=== PATIENT | female | born 1970 | race Caucasian/White ===

== ENCOUNTER 2017-09-15 22:29 | Inpatient (IN) | payer MEDICARE, MEDICAID ==
[~2017-09-15] VITALS: Ht 162.6 cm; Wt 62.1 kg
[2017-09-16 04:20] VITALS: BP 121/66
[2017-09-16] MEDS ORDERED: INFLUENZA VIRUS VACCINE QVS 2017-18 (3YR+)/PF 60 MCG/0.5 ML SYRINGE IM ONE (05:30)
[2017-09-16] MEDS ORDERED: PNEUMOCOCCAL VACCINE POLYVALENT 0.5 ML VIAL [PPSV23] IM ONE (05:30)
[2017-09-16 09:15] VITALS: BP 117/65
[2017-09-16] MEDS ORDERED: CloNIDine HCL 0.1 MG TABLET PO PRN (09:45)
[2017-09-16] MEDS ORDERED: PETROLATUM,WHITE 71 GM JELLY TP PRN (09:45)
[2017-09-16] MEDS ORDERED: MAG HYDROX/AL HYDROX/SIMETH ES 30 ML SUSPENSION UDCUP PO PRN (09:45)
[2017-09-16] MEDS ORDERED: BACITRACIN 28.4 GM OINTMENT TP PRN (09:45)
[2017-09-16] MEDS ORDERED: ACETAMINOPHEN 325 MG TABLET PO PRN (09:45)
[2017-09-16] MEDS ORDERED: BENZOCAINE/MENTHOL LOZENGE MM PRN (09:45)
[2017-09-16] MEDS ORDERED: IBUPROFEN 600 MG TABLET PO PRN (09:45)
[2017-09-16] MEDS ORDERED: LOPERAMIDE HCL 2 MG CAPSULE PO PRN (09:45)
[2017-09-16] MEDS ORDERED: ONDANSETRON HCL 4 MG TABLET PO PRN (09:45)
[2017-09-16] MEDS ORDERED: MAGNESIUM HYDROXIDE SUSPENSION 30 ML UDCUP PO PRN (09:45)
[2017-09-16] MEDS ORDERED: ALBUTEROL SULFATE HFA 90 MCG/PUFF 8 GM INHALER IH PRN (09:45)
[2017-09-16] MEDS: NICOTINE 21 MG/24 HOUR PATCH TD SCH (13:08)
[2017-09-16] MEDS: DOCUSATE SODIUM 100 MG CAPSULE PO SCH (13:08)
[2017-09-16] MEDS: LORazepam 2 MG TABLET PO PRN ×2 (14:04→19:53)
[2017-09-16] MEDS: ZOLPIDEM TARTRATE 10 MG TABLET PO PRN (20:23)
[2017-09-17 07:11] VITALS: BP 101/67
[2017-09-17] MEDS: QUEtiapine FUMARATE 100 MG TABLET PO PRN (07:41)
[2017-09-17] MEDS: LORazepam 2 MG TABLET PO PRN ×2 (07:41→16:45)
[2017-09-17] MEDS: DOCUSATE SODIUM 100 MG CAPSULE PO SCH (08:12)
[2017-09-17] MEDS: NICOTINE 21 MG/24 HOUR PATCH TD SCH (08:12)
[2017-09-17] MEDS: OMEPRAZOLE 20 MG CAPSULE PO SCH (08:13)
[2017-09-17] MEDS: CITALOPRAM HYDROBROMIDE 20 MG TABLET PO SCH (12:32)
[2017-09-17] MEDS ORDERED: DOCUSATE SODIUM 100 MG CAPSULE PO PRN (15:30)
[2017-09-17] MEDS: DIVALPROEX SODIUM 500 MG DR TABLET PO SCH (16:37)
[2017-09-17] MEDS: ZOLPIDEM TARTRATE 10 MG TABLET PO PRN (21:18)
[2017-09-18] MEDS: LORazepam 2 MG TABLET PO PRN ×3 (02:03→16:59)
[2017-09-18 07:08] VITALS: BP 120/85
[2017-09-18] MEDS: NICOTINE 21 MG/24 HOUR PATCH TD SCH (08:00)
[2017-09-18] MEDS: CITALOPRAM HYDROBROMIDE 20 MG TABLET PO SCH (08:00)
[2017-09-18] MEDS: DIVALPROEX SODIUM 500 MG DR TABLET PO SCH ×3 (08:00→16:59)
[2017-09-18] MEDS: OMEPRAZOLE 20 MG CAPSULE PO SCH (08:00)
[2017-09-18 08:05] VITALS: BP 114/73
[2017-09-18 09:00] LABS: BASOPHILS % (AUTO) 0.4 % (0.0-2.0); EOSINOPHILS % (AUTO) 3.1 % (1.0-6.0); HEMATOCRIT 38.7 % (36-46); HEMOGLOBIN 13.3 g/dL (12.0-16.0); LYMPHOCYTES # (AUTO) 2.2 K/uL (1.0-4.8); MEAN CORPUSCULAR HEMOGLOBIN 30.1 pg (26.0-34.0); MEAN CORPUSCULAR HGB CONC 34.4 G/dL (31.0-37.0); MEAN CORPUSCULAR VOLUME 88 fL (80-100); MONOCYTES # (AUTO) 0.4 K/uL (0.1-1.0); MONOCYTES % (AUTO) 5.3 % (2.0-9.0); NEUTROPHILS # (AUTO) 4.6 K/uL (1.8-7.7); NEUTROPHILS % (AUTO) 62.2 % (40.0-70.0); PLATELET COUNT (AUTO) 300 K/uL (150-450); RED BLOOD CELL COUNT(AUTO) 4.42 MIL/uL (4.00-5.20)
[2017-09-18 09:49] LABS: HEMOGLOBIN A1C 5.1 % (4.5-6.2)
[2017-09-18] MEDS: GuaiFENesin/D-METHORPHAN [SUGAR-FREE] 200-20MG/10 ML SYRUP UDCUP PO PRN (09:54)
[2017-09-18] MEDS: QUEtiapine FUMARATE 100 MG TABLET PO PRN (10:52)
[2017-09-18 12:11] LABS: ALBUMIN 3.7 g/dL (3.4-5.0); BILIRUBIN,TOTAL 0.3 mg/dL (0.1-1.0); CALCIUM, TOTAL 8.6 mg/dL (8.8-10.5); CHOL/HDL RATIO 3.4 (3.9-5.7); CREATININE 1.04 mg/dL (0.60-1.30); FREE T4 (FREE THYROXINE) 0.33 ng/dL (0.76-1.46); THYROID STIMULATING HORMONE 107.01 uIU/mL (0.36-3.74); TOTAL PROTEIN, SERUM 7.7 g/dL (6.4-8.2)
[2017-09-18] MEDS: ZOLPIDEM TARTRATE 10 MG TABLET PO PRN (23:32)
[2017-09-19] MEDS: LORazepam 2 MG TABLET PO PRN ×3 (05:49→22:44)
[2017-09-19 06:59] VITALS: BP 118/74
[2017-09-19] MEDS: OMEPRAZOLE 20 MG CAPSULE PO SCH (08:53)
[2017-09-19] MEDS: NICOTINE 21 MG/24 HOUR PATCH TD SCH (08:53)
[2017-09-19] MEDS: DIVALPROEX SODIUM 500 MG DR TABLET PO SCH (08:53)
[2017-09-19] MEDS: CHOLECALCIFEROL (VIT D3) 1,000 UNITS TABLET PO SCH (08:53)
[2017-09-19] MEDS: CITALOPRAM HYDROBROMIDE 20 MG TABLET PO SCH (08:53)
[2017-09-19] MEDS: OMEGA-3/DHA/EPA/FISH OIL 1,000 MG CAPSULE PO SCH (08:53)
[2017-09-19] MEDS ORDERED: OMEGA-3/DHA/EPA/FISH OIL 1,000 MG CAPSULE PO SCH (09:00)
[2017-09-19] MEDS ORDERED: CHOLECALCIFEROL (VIT D3) 1,000 UNITS TABLET PO SCH (09:00)
[2017-09-19 09:27] LABS: ANION GAP 11 mmol/L (8-16); CALCIUM, TOTAL 8.8 mg/dL (8.8-10.5); CARBON DIOXIDE 23 mmol/L (22-29); CHLORIDE 105 mmol/L (98-107); CREATININE 0.98 mg/dL (0.60-1.30); GLOMERULAR FILTR. RATE CALC > 60 mL/min (>60); GLUCOSE,RANDOM 125 mg/dL (70-110); POTASSIUM 3.8 mmol/L (3.5-5.1); SODIUM SERUM 139 mmol/L (136-145); THYROID STIMULATING HORMONE 95.82 uIU/mL (0.36-3.74); UREA NITROGEN, BLOOD 23 mg/dL (7-18)
[2017-09-19] MEDS: LEVOTHYROXINE SODIUM 100 MCG TABLET PO SCH (10:28)
[2017-09-19] MEDS: QUEtiapine FUMARATE 100 MG TABLET PO PRN ×2 (10:47→20:04)
[2017-09-19 16:42] VITALS: BP 118/73
[2017-09-19] MEDS: LITHIUM CARBONATE 300 MG CAPSULE PO SCH (20:04)
[2017-09-19] MEDS: ZOLPIDEM TARTRATE 10 MG TABLET PO PRN (20:05)
[2017-09-20] MEDS: LORazepam 2 MG TABLET PO PRN ×3 (04:03→17:20)
[2017-09-20] MEDS: LEVOTHYROXINE SODIUM 100 MCG TABLET PO SCH (06:34)
[2017-09-20] MEDS: CHOLECALCIFEROL (VIT D3) 1,000 UNITS TABLET PO SCH (08:46)
[2017-09-20] MEDS: NICOTINE 21 MG/24 HOUR PATCH TD SCH (08:46)
[2017-09-20] MEDS: OMEGA-3/DHA/EPA/FISH OIL 1,000 MG CAPSULE PO SCH (08:47)
[2017-09-20] MEDS: CITALOPRAM HYDROBROMIDE 20 MG TABLET PO SCH (08:47)
[2017-09-20] MEDS: OMEPRAZOLE 20 MG CAPSULE PO SCH (08:47)
[2017-09-20] MEDS: QUEtiapine FUMARATE 100 MG TABLET PO PRN (12:03)
[2017-09-20] MEDS: LITHIUM CARBONATE 300 MG CAPSULE PO SCH (20:15)
[2017-09-20] MEDS: ZOLPIDEM TARTRATE 10 MG TABLET PO PRN (23:22)
[2017-09-21] MEDS: LORazepam 2 MG TABLET PO PRN ×4 (04:11→20:03)
[2017-09-21] MEDS: QUEtiapine FUMARATE 100 MG TABLET PO PRN ×4 (04:11→20:03)
[2017-09-21] MEDS: LEVOTHYROXINE SODIUM 100 MCG TABLET PO SCH (06:29)
[2017-09-21] MEDS: CHOLECALCIFEROL (VIT D3) 1,000 UNITS TABLET PO SCH (08:00)
[2017-09-21] MEDS: NICOTINE 21 MG/24 HOUR PATCH TD SCH (08:00)
[2017-09-21] MEDS: OMEPRAZOLE 20 MG CAPSULE PO SCH (08:00)
[2017-09-21] MEDS: CITALOPRAM HYDROBROMIDE 20 MG TABLET PO SCH (08:00)
[2017-09-21] MEDS: OMEGA-3/DHA/EPA/FISH OIL 1,000 MG CAPSULE PO SCH (08:01)
[2017-09-21 08:11] VITALS: BP 99/58
[2017-09-21] MEDS: LITHIUM CARBONATE 300 MG CAPSULE PO SCH (20:03)
[2017-09-21] MEDS: ZOLPIDEM TARTRATE 10 MG TABLET PO PRN (21:30)
[2017-09-22 04:27] VITALS: BP 107/60
[2017-09-22] MEDS: LEVOTHYROXINE SODIUM 100 MCG TABLET PO SCH (06:27)
[2017-09-22] MEDS: LORazepam 2 MG TABLET PO PRN ×4 (06:31→17:45)
[2017-09-22] MEDS: QUEtiapine FUMARATE 100 MG TABLET PO PRN ×4 (06:32→21:22)
[2017-09-22] MEDS: DENTURE ADHESIVE 68 GM CREAM DT PRN (07:09)
[2017-09-22] MEDS: CITALOPRAM HYDROBROMIDE 20 MG TABLET PO SCH (08:02)
[2017-09-22] MEDS: NICOTINE 21 MG/24 HOUR PATCH TD SCH (08:02)
[2017-09-22] MEDS: CHOLECALCIFEROL (VIT D3) 1,000 UNITS TABLET PO SCH (08:02)
[2017-09-22] MEDS: OMEPRAZOLE 20 MG CAPSULE PO SCH (08:02)
[2017-09-22] MEDS: OMEGA-3/DHA/EPA/FISH OIL 1,000 MG CAPSULE PO SCH (08:05)
[2017-09-22] MEDS: GuaiFENesin/D-METHORPHAN [SUGAR-FREE] 200-20MG/10 ML SYRUP UDCUP PO PRN (14:46)
[2017-09-22 16:18] VITALS: BP 105/69
[2017-09-22] MEDS: LITHIUM CARBONATE 300 MG CAPSULE PO SCH (20:01)
[2017-09-22] MEDS: ZOLPIDEM TARTRATE 10 MG TABLET PO PRN (20:01)
[2017-09-23 01:02] VITALS: BP 112/67
[2017-09-23 06:17] LABS: GLUCOMETER DEV NAME(LOC) BV3S 2; GLUCOSE,POINT OF CARE 115 MG/DL (70-110)
[2017-09-23] MEDS: LEVOTHYROXINE SODIUM 100 MCG TABLET PO SCH (06:32)
[2017-09-23] MEDS: LORazepam 2 MG TABLET PO PRN ×3 (06:40→18:00)
[2017-09-23 07:54] LABS: LITHIUM 1.11 mmol/L (0.60-1.20)
[2017-09-23] MEDS: NICOTINE 21 MG/24 HOUR PATCH TD SCH (08:20)
[2017-09-23] MEDS: CITALOPRAM HYDROBROMIDE 20 MG TABLET PO SCH (08:20)
[2017-09-23] MEDS: OMEPRAZOLE 20 MG CAPSULE PO SCH (08:21)
[2017-09-23] MEDS: QUEtiapine FUMARATE 100 MG TABLET PO PRN ×2 (08:21→13:57)
[2017-09-23] MEDS: CHOLECALCIFEROL (VIT D3) 1,000 UNITS TABLET PO SCH (08:21)
[2017-09-23] MEDS: OMEGA-3/DHA/EPA/FISH OIL 1,000 MG CAPSULE PO SCH (08:21)
[2017-09-23 08:27] VITALS: BP 119/73
[2017-09-23 09:25] LABS: THYROID STIMULATING HORMONE 91.11 uIU/mL (0.36-3.74)
[2017-09-23] MEDS: LITHIUM CARBONATE 300 MG CAPSULE PO SCH (20:23)
[2017-09-23] MEDS: ZOLPIDEM TARTRATE 10 MG TABLET PO PRN (21:04)
[2017-09-24] MEDS: LORazepam 2 MG TABLET PO PRN ×3 (05:29→16:10)
[2017-09-24] MEDS: LEVOTHYROXINE SODIUM 125 MCG TABLET PO SCH (06:00)
[2017-09-24] MEDS: QUEtiapine FUMARATE 100 MG TABLET PO PRN ×3 (06:00→16:10)
[2017-09-24 06:45] VITALS: BP 115/74
[2017-09-24] MEDS: OMEPRAZOLE 20 MG CAPSULE PO SCH (07:52)
[2017-09-24] MEDS: CHOLECALCIFEROL (VIT D3) 1,000 UNITS TABLET PO SCH (07:52)
[2017-09-24] MEDS: NICOTINE 21 MG/24 HOUR PATCH TD SCH (07:52)
[2017-09-24] MEDS: OMEGA-3/DHA/EPA/FISH OIL 1,000 MG CAPSULE PO SCH (07:53)
[2017-09-24] MEDS: CITALOPRAM HYDROBROMIDE 20 MG TABLET PO SCH (07:53)
[2017-09-24 16:00] VITALS: BP 121/55
[2017-09-24] MEDS: ZOLPIDEM TARTRATE 10 MG TABLET PO PRN (20:05)
[2017-09-24] MEDS: LITHIUM CARBONATE 300 MG CAPSULE PO SCH (20:05)
[2017-09-25] MEDS: LORazepam 2 MG TABLET PO PRN ×4 (00:40→17:43)
[2017-09-25 02:17] VITALS: BP 121/62
[2017-09-25] MEDS: LEVOTHYROXINE SODIUM 125 MCG TABLET PO SCH (06:10)
[2017-09-25] MEDS: CHOLECALCIFEROL (VIT D3) 1,000 UNITS TABLET PO SCH (08:03)
[2017-09-25] MEDS: OMEPRAZOLE 20 MG CAPSULE PO SCH (08:03)
[2017-09-25] MEDS: NICOTINE 21 MG/24 HOUR PATCH TD SCH (08:03)
[2017-09-25] MEDS: CITALOPRAM HYDROBROMIDE 20 MG TABLET PO SCH (08:03)
[2017-09-25] MEDS: QUEtiapine FUMARATE 100 MG TABLET PO PRN ×2 (08:03→12:29)
[2017-09-25] MEDS: OMEGA-3/DHA/EPA/FISH OIL 1,000 MG CAPSULE PO SCH (08:05)
[2017-09-25] MEDS: GuaiFENesin/D-METHORPHAN [SUGAR-FREE] 200-20MG/10 ML SYRUP UDCUP PO PRN (12:29)
[2017-09-25] MEDS: LITHIUM CARBONATE 300 MG CAPSULE PO SCH ×2 (14:33→20:01)
[2017-09-25 16:16] VITALS: BP 117/70
[2017-09-25] MEDS: ZOLPIDEM TARTRATE 10 MG TABLET PO PRN (20:25)
[2017-09-26] MEDS: LEVOTHYROXINE SODIUM 125 MCG TABLET PO SCH (06:12)
[2017-09-26 06:29] VITALS: BP 100/60
[2017-09-26] MEDS: QUEtiapine FUMARATE 100 MG TABLET PO PRN (08:53)
[2017-09-26] MEDS: NICOTINE 21 MG/24 HOUR PATCH TD SCH (08:53)
[2017-09-26] MEDS: LITHIUM CARBONATE 300 MG CAPSULE PO SCH ×2 (08:54→20:02)
[2017-09-26] MEDS: CITALOPRAM HYDROBROMIDE 20 MG TABLET PO SCH (08:54)
[2017-09-26] MEDS: OMEPRAZOLE 20 MG CAPSULE PO SCH (08:54)
[2017-09-26] MEDS: OMEGA-3/DHA/EPA/FISH OIL 1,000 MG CAPSULE PO SCH (08:54)
[2017-09-26] MEDS: LORazepam 2 MG TABLET PO PRN ×2 (08:54→16:08)
[2017-09-26] MEDS: CHOLECALCIFEROL (VIT D3) 1,000 UNITS TABLET PO SCH (08:54)
[2017-09-26] MEDS: ZOLPIDEM TARTRATE 10 MG TABLET PO PRN (20:03)
[2017-09-27] MEDS: LORazepam 2 MG TABLET PO PRN ×3 (06:06→16:21)
[2017-09-27] MEDS: LEVOTHYROXINE SODIUM 125 MCG TABLET PO SCH (06:06)
[2017-09-27] MEDS: OMEGA-3/DHA/EPA/FISH OIL 1,000 MG CAPSULE PO SCH (08:31)
[2017-09-27] MEDS: OMEPRAZOLE 20 MG CAPSULE PO SCH (08:31)
[2017-09-27] MEDS: NICOTINE 21 MG/24 HOUR PATCH TD SCH (08:32)
[2017-09-27] MEDS: CITALOPRAM HYDROBROMIDE 20 MG TABLET PO SCH (08:32)
[2017-09-27] MEDS: LITHIUM CARBONATE 300 MG CAPSULE PO SCH ×2 (08:32→20:11)
[2017-09-27] MEDS: CHOLECALCIFEROL (VIT D3) 1,000 UNITS TABLET PO SCH (08:32)
[2017-09-27] MEDS: QUEtiapine FUMARATE 100 MG TABLET PO PRN ×2 (09:12→14:18)
[2017-09-27] MEDS: GuaiFENesin/D-METHORPHAN [SUGAR-FREE] 200-20MG/10 ML SYRUP UDCUP PO PRN (11:08)
[2017-09-27 16:33] VITALS: BP 105/65
[2017-09-27] MEDS ORDERED: DiphenhydrAMINE HCL 25 MG CAPSULE PO ONE (17:30)
[2017-09-27] MEDS: ZOLPIDEM TARTRATE 10 MG TABLET PO PRN (20:11)
[2017-09-28 01:06] VITALS: BP 124/74
[2017-09-28] MEDS: LORazepam 2 MG TABLET PO PRN ×3 (01:07→13:34)
[2017-09-28] MEDS: QUEtiapine FUMARATE 100 MG TABLET PO PRN ×3 (04:46→13:34)
[2017-09-28] MEDS: LEVOTHYROXINE SODIUM 125 MCG TABLET PO SCH (06:16)
[2017-09-28] MEDS: NICOTINE 21 MG/24 HOUR PATCH TD SCH (08:49)
[2017-09-28] MEDS: CITALOPRAM HYDROBROMIDE 20 MG TABLET PO SCH (08:49)
[2017-09-28] MEDS: LITHIUM CARBONATE 300 MG CAPSULE PO SCH ×2 (08:49→20:30)
[2017-09-28] MEDS: CHOLECALCIFEROL (VIT D3) 1,000 UNITS TABLET PO SCH (08:49)
[2017-09-28] MEDS: OMEGA-3/DHA/EPA/FISH OIL 1,000 MG CAPSULE PO SCH (08:49)
[2017-09-28] MEDS: OMEPRAZOLE 20 MG CAPSULE PO SCH (08:49)
[2017-09-28 16:00] VITALS: BP 98/71
[2017-09-28] MEDS: ZOLPIDEM TARTRATE 10 MG TABLET PO PRN (21:15)
[2017-09-29 03:27] VITALS: BP 111/62
[2017-09-29] MEDS: LORazepam 2 MG TABLET PO PRN ×2 (03:30→08:43)
[2017-09-29] MEDS: QUEtiapine FUMARATE 100 MG TABLET PO PRN ×2 (04:21→09:38)
[2017-09-29] MEDS: DENTURE ADHESIVE 68 GM CREAM DT PRN (05:51)
[2017-09-29] MEDS: LEVOTHYROXINE SODIUM 125 MCG TABLET PO SCH (05:51)
[2017-09-29] MEDS: LITHIUM CARBONATE 300 MG CAPSULE PO SCH (08:39)
[2017-09-29] MEDS: CHOLECALCIFEROL (VIT D3) 1,000 UNITS TABLET PO SCH (08:39)
[2017-09-29] MEDS: CITALOPRAM HYDROBROMIDE 20 MG TABLET PO SCH (08:40)
[2017-09-29] MEDS: OMEPRAZOLE 20 MG CAPSULE PO SCH (08:40)
[2017-09-29] MEDS: OMEGA-3/DHA/EPA/FISH OIL 1,000 MG CAPSULE PO SCH (08:40)
[2017-09-29] MEDS: NICOTINE 21 MG/24 HOUR PATCH TD SCH (08:42)
[2017-09-29] MEDS ORDERED: LITH300C3 PO ×2 (12:29)
[2017-09-29] MEDS ORDERED: CITA20TA9 PO (12:30)
[2017-09-29] MEDS ORDERED: LEVO125T95 PO (12:30)
[2017-09-29] MEDS ORDERED: VITAD1000 PO (12:31)
[2017-09-29] MEDS ORDERED: OMEG-135 PO (12:31)
[2017-09-29] MEDS ORDERED: OMEP20 PO (12:31)
== END 2017-09-29 12:55 | disposition home or self-care (01) | DRG 885 ==
LOC: EDSTATUS 22:32 → B3A 09-16 03:30
PROVIDERS: ADMIT Psychiatry & Neurology Psychiatry; ATTEND Psychiatry & Neurology Psychiatry
PROC: 3E0234Z Introduction of Serum, Toxoid and Vaccine into Muscle, Percutaneous Approach (ICD-10-PCS; principal; 2017-09-16)
DX: F31.9 Bipolar disorder, unspecified (principal); R45.851 Suicidal ideations; E83.51 Hypocalcemia; Z91.19 Patient's noncompliance with other medical treatment and regimen; Z23 Encounter for immunization; E03.9 Hypothyroidism, unspecified; E78.1 Pure hyperglyceridemia; F17.200 Nicotine dependence, unspecified, uncomplicated; Z71.6 Tobacco abuse counseling; R05 Cough
CPT/HCPCS: 82306; 82962; 83036; 84439; 84443; 87081; 90471; J3535

== ENCOUNTER 2017-10-19 12:48 | Inpatient (IN) | payer MEDICARE, MEDICAID ==
[~2017-10-19] VITALS: Ht 157.5 cm; Wt 60.3 kg
[~2017-10-19 12:48] MED LIST: CITA20TA9 PO; LEVO125T95 PO; LITH300C3 PO; OMEG-135 PO; OMEP20 PO; VITAD1000 PO
[2017-10-19] MEDS ORDERED: HALO100A IM (13:14)
[2017-10-19] MEDS ORDERED: LEVO100 PO (13:14)
[2017-10-19] MEDS ORDERED: TRAZ-144 PO (13:14)
[2017-10-19] MEDS ORDERED: QUET25TA PO (13:14)
[2017-10-19] MEDS ORDERED: HALOPERIDOL 5 MG TABLET PO PRN (13:15)
[2017-10-19] MEDS ORDERED: HALOPERIDOL 5 MG TABLET PO ONE (13:15)
[2017-10-19] MEDS ORDERED: LORazepam 2 MG TABLET PO PRN (13:15)
[2017-10-19] MEDS ORDERED: ZOLPIDEM TARTRATE 10 MG TABLET PO PRN (13:15)
[2017-10-19] MEDS ORDERED: LORazepam 2 MG TABLET PO ONE (13:15)
[2017-10-19 13:22] LABS: AMPHET/METH SCREEN,URINE NEGATIVE (NEGATIVE); BARBITURATE SCREEN, URINE NEGATIVE (NEGATIVE); BENZODIAZEPINES SCREEN,URINE NEGATIVE (NEGATIVE); CANNABINOID SCREEN,URINE NEGATIVE (NEGATIVE); COCAINE SCREEN,URINE NEGATIVE (NEGATIVE); METHADONE SCREEN, URINE NEGATIVE (NEGATIVE); OPIATE SCREEN,URINE NEGATIVE (NEGATIVE); PHENCYCLIDINE SCREEN,URINE NEGATIVE (NEGATIVE)
[2017-10-19 13:27] LABS: BASOPHILS # (AUTO) 0.02 K/uL (0.00-0.20); BASOPHILS % (AUTO) 0.2 % (0.0-2.0); EOSINOPHILS # (AUTO) 0.03 K/uL (0.00-0.70); EOSINOPHILS % (AUTO) 0.32 % (1.0-6.0); HEMATOCRIT 36.1 % (36-46); HEMOGLOBIN 12.2 g/dL (12.0-16.0); LYMPHOCYTES # (AUTO) 2.6 K/uL (1.0-4.8); LYMPHOCYTES % (AUTO) 24.8 % (22.0-44.0); MEAN CORPUSCULAR HEMOGLOBIN 29.9 pg (26.0-34.0); MEAN CORPUSCULAR HGB CONC 33.7 G/dL (31.0-37.0); MEAN CORPUSCULAR VOLUME 89 fL (80-100); MONOCYTES # (AUTO) 0.5 K/uL (0.1-1.0); MONOCYTES % (AUTO) 4.9 % (2.0-9.0); NEUTROPHILS # (AUTO) 7.3 K/uL (1.8-7.7); NEUTROPHILS % (AUTO) 69.8 % (40.0-70.0); PLATELET COUNT (AUTO) 291 K/uL (150-450); RED BLOOD CELL COUNT(AUTO) 4.07 MIL/uL (4.00-5.20); RED CELL DISTRIBUTION WIDTH 15.5 % (11.5-14.5)
[2017-10-19 13:33] LABS: ANION GAP 9 mmol/L (8-16); CARBON DIOXIDE 28 mmol/L (22-29); CHLORIDE 103 mmol/L (98-107); GLUCOSE,RANDOM 108 mg/dL (70-110); SODIUM SERUM 140 mmol/L (136-145); UREA NITROGEN, BLOOD 20 mg/dL (7-18)
[2017-10-19 13:34] LABS: CALCIUM, TOTAL 9.3 mg/dL (8.8-10.5); GLOMERULAR FILTR. RATE CALC > 60 mL/min (>60)
[2017-10-19 13:39] LABS: ALANINE AMINOTRANSFERASE 25 U/L (12-78); ALKALINE PHOSPHATASE 63 U/L (46-116); ASPARTATE AMINOTRANSFERASE 19 U/L (15-37); BILIRUBIN,TOTAL 0.3 mg/dL (0.1-1.0); TOTAL PROTEIN, SERUM 7.6 g/dL (6.4-8.2)
[2017-10-19 13:42] LABS: LITHIUM < 0.20 mmol/L (0.60-1.20)
[2017-10-19 18:11] VITALS: BP 116/75
[2017-10-19] MEDS ORDERED: -PHARMACY VACCINE NOTE- MISC ONE (18:30)
[2017-10-20 01:18] VITALS: BP 101/61
[2017-10-20] MEDS: NICOTINE 21 MG/24 HOUR PATCH TD SCH (08:31)
[2017-10-20 08:44] VITALS: BP 100/53
[2017-10-20] MEDS: LORazepam 2 MG TABLET PO PRN (10:03)
[2017-10-20] MEDS: OMEPRAZOLE 20 MG CAPSULE PO SCH ×2 (10:03→16:40)
[2017-10-20] MEDS: HALOPERIDOL 5 MG TABLET PO PRN (10:03)
[2017-10-20] MEDS: LEVOTHYROXINE SODIUM 100 MCG TABLET PO SCH (10:09)
[2017-10-20 16:15] VITALS: BP 111/64
[2017-10-20] MEDS: DIVALPROEX SODIUM 500 MG DR TABLET PO SCH (19:09)
[2017-10-20] MEDS: RisperiDONE 1 MG TABLET PO SCH (19:09)
[2017-10-20] MEDS: LITHIUM CARBONATE 300 MG CAPSULE PO SCH (20:36)
[2017-10-21] MEDS: ZOLPIDEM TARTRATE 10 MG TABLET PO PRN ×2 (00:10→01:13)
[2017-10-21] MEDS: LORazepam 2 MG TABLET PO PRN ×3 (00:10→14:16)
[2017-10-21 00:24] VITALS: BP 113/65
[2017-10-21] MEDS: HALOPERIDOL 5 MG TABLET PO PRN ×2 (01:20→11:54)
[2017-10-21] MEDS: LEVOTHYROXINE SODIUM 100 MCG TABLET PO SCH (07:04)
[2017-10-21 08:20] LABS: LITHIUM 0.59 mmol/L (0.60-1.20)
[2017-10-21 08:25] LABS: CHOL/HDL RATIO 3.8 (3.9-5.7); FREE T4 (FREE THYROXINE) 0.39 ng/dL (0.76-1.46)
[2017-10-21] MEDS: DIVALPROEX SODIUM 500 MG DR TABLET PO SCH ×2 (08:51→16:38)
[2017-10-21] MEDS: OMEPRAZOLE 20 MG CAPSULE PO SCH ×2 (08:51→16:38)
[2017-10-21] MEDS: RisperiDONE 1 MG TABLET PO SCH ×2 (08:51→16:38)
[2017-10-21] MEDS: NICOTINE 21 MG/24 HOUR PATCH TD SCH (08:51)
[2017-10-21 09:11] VITALS: BP 104/62
[2017-10-21 09:44] LABS: THYROID STIMULATING HORMONE 145.48 uIU/mL (0.36-3.74)
[2017-10-21 14:15] VITALS: BP 125/67
[2017-10-21 16:23] VITALS: BP 105/62
[2017-10-21] MEDS: TraZODone HCL 50 MG TABLET PO SCH (20:39)
[2017-10-21] MEDS: LITHIUM CARBONATE 300 MG CAPSULE PO SCH (20:39)
[2017-10-22 02:25] VITALS: BP 112/68
[2017-10-22] MEDS: ZOLPIDEM TARTRATE 10 MG TABLET PO PRN ×2 (02:30→22:12)
[2017-10-22 03:50] VITALS: BP 110/67
[2017-10-22] MEDS: HALOPERIDOL 5 MG TABLET PO PRN (03:54)
[2017-10-22] MEDS: LEVOTHYROXINE SODIUM 100 MCG TABLET PO SCH (06:40)
[2017-10-22 08:18] VITALS: BP 102/69
[2017-10-22] MEDS: OMEPRAZOLE 20 MG CAPSULE PO SCH ×2 (08:43→16:34)
[2017-10-22] MEDS: NICOTINE 21 MG/24 HOUR PATCH TD SCH (08:43)
[2017-10-22] MEDS: RisperiDONE 1 MG TABLET PO SCH ×2 (08:43→16:34)
[2017-10-22] MEDS: DIVALPROEX SODIUM 500 MG DR TABLET PO SCH ×2 (08:43→16:34)
[2017-10-22 16:00] VITALS: BP 113/65
[2017-10-22] MEDS: ACETAMINOPHEN 325 MG TABLET PO PRN (16:00)
[2017-10-22] MEDS: LITHIUM CARBONATE 300 MG CAPSULE PO SCH (20:33)
[2017-10-22] MEDS: TraZODone HCL 50 MG TABLET PO SCH (20:33)
[2017-10-23 01:00] VITALS: BP 110/71
[2017-10-23] MEDS: LORazepam 2 MG TABLET PO PRN (01:02)
[2017-10-23] MEDS: LEVOTHYROXINE SODIUM 100 MCG TABLET PO SCH (07:04)
[2017-10-23 08:12] VITALS: BP 112/70
[2017-10-23] MEDS: RisperiDONE 1 MG TABLET PO SCH ×2 (08:37→17:06)
[2017-10-23] MEDS: OMEPRAZOLE 20 MG CAPSULE PO SCH ×2 (08:37→17:06)
[2017-10-23] MEDS: DIVALPROEX SODIUM 500 MG DR TABLET PO SCH ×2 (08:37→17:06)
[2017-10-23] MEDS: NICOTINE 21 MG/24 HOUR PATCH TD SCH (08:38)
[2017-10-23] MEDS: HALOPERIDOL 5 MG TABLET PO PRN (13:46)
[2017-10-23 16:25] VITALS: BP 105/60
[2017-10-23] MEDS: ALBUTEROL SULFATE HFA 90 MCG/PUFF 8 GM INHALER IH PRN (18:29)
[2017-10-23] MEDS: LITHIUM CARBONATE 300 MG CAPSULE PO SCH (20:34)
[2017-10-23] MEDS: TraZODone HCL 50 MG TABLET PO SCH (20:34)
[2017-10-23] MEDS: ZOLPIDEM TARTRATE 10 MG TABLET PO PRN (21:27)
[2017-10-24 00:57] VITALS: BP 120/79
[2017-10-24] MEDS: LORazepam 2 MG TABLET PO PRN ×2 (02:38→08:49)
[2017-10-24] MEDS: LEVOTHYROXINE SODIUM 100 MCG TABLET PO SCH (07:02)
[2017-10-24 08:23] VITALS: BP 103/58
[2017-10-24] MEDS: RisperiDONE 1 MG TABLET PO SCH ×2 (08:25→16:17)
[2017-10-24] MEDS: OMEPRAZOLE 20 MG CAPSULE PO SCH ×2 (08:25→16:17)
[2017-10-24] MEDS: DIVALPROEX SODIUM 500 MG DR TABLET PO SCH ×2 (08:25→16:17)
[2017-10-24] MEDS: NICOTINE 21 MG/24 HOUR PATCH TD SCH (08:27)
[2017-10-24 08:45] VITALS: BP 112/68
[2017-10-24] MEDS: HALOPERIDOL 5 MG TABLET PO PRN (12:04)
[2017-10-24 16:11] VITALS: BP 102/60
[2017-10-24 17:32] VITALS: BP 110/68
[2017-10-24] MEDS: ACETAMINOPHEN 325 MG TABLET PO PRN (17:33)
[2017-10-24] MEDS: TraZODone HCL 50 MG TABLET PO SCH (20:21)
[2017-10-24] MEDS: LITHIUM CARBONATE 300 MG CAPSULE PO SCH (20:21)
[2017-10-25] MEDS: LEVOTHYROXINE SODIUM 100 MCG TABLET PO SCH (06:40)
[2017-10-25 08:21] VITALS: BP 102/68
[2017-10-25] MEDS ORDERED: RISP1TAB89 PO (08:27)
[2017-10-25] MEDS ORDERED: DIVA250T4 PO (08:27)
[2017-10-25] MEDS: DIVALPROEX SODIUM 500 MG DR TABLET PO SCH ×2 (08:40→16:42)
[2017-10-25] MEDS: OMEPRAZOLE 20 MG CAPSULE PO SCH ×2 (08:40→16:42)
[2017-10-25] MEDS: RisperiDONE 1 MG TABLET PO SCH ×2 (08:40→16:42)
[2017-10-25] MEDS: NICOTINE 21 MG/24 HOUR PATCH TD SCH ×2 (08:42→10:05)
[2017-10-25] MEDS: ALBUTEROL SULFATE HFA 90 MCG/PUFF 8 GM INHALER IH PRN (10:14)
[2017-10-25] MEDS: LORazepam 2 MG TABLET PO PRN (15:46)
[2017-10-25 16:46] VITALS: BP 108/65
[2017-10-25] MEDS: ACETAMINOPHEN 325 MG TABLET PO PRN (16:47)
[2017-10-25] MEDS: LITHIUM CARBONATE 300 MG CAPSULE PO SCH (20:35)
[2017-10-25] MEDS: TraZODone HCL 50 MG TABLET PO SCH (20:35)
[2017-10-26] MEDS: LEVOTHYROXINE SODIUM 100 MCG TABLET PO SCH (06:26)
[2017-10-26 07:17] VITALS: BP 102/68
[2017-10-26 07:59] VITALS: BP 102/57
[2017-10-26] MEDS: OMEPRAZOLE 20 MG CAPSULE PO SCH ×2 (08:26→17:03)
[2017-10-26] MEDS: RisperiDONE 1 MG TABLET PO SCH ×2 (08:26→17:03)
[2017-10-26] MEDS: NICOTINE 21 MG/24 HOUR PATCH TD SCH (08:26)
[2017-10-26] MEDS: DIVALPROEX SODIUM 500 MG DR TABLET PO SCH ×2 (08:26→17:03)
[2017-10-26] MEDS: ACETAMINOPHEN 325 MG TABLET PO PRN (08:29)
[2017-10-26 09:02] VITALS: BP 102/57
[2017-10-26] MEDS ORDERED: DENTURE ADHESIVE 68 GM CREAM DT PRN (09:45)
[2017-10-26 12:01] VITALS: BP 112/68
[2017-10-26] MEDS: LORazepam 2 MG TABLET PO PRN ×2 (12:01→22:35)
[2017-10-26] MEDS: HALOPERIDOL 5 MG TABLET PO PRN (14:13)
[2017-10-26 16:12] VITALS: BP 101/67
[2017-10-26] MEDS: TraZODone HCL 50 MG TABLET PO SCH (20:33)
[2017-10-26] MEDS: LITHIUM CARBONATE 300 MG CAPSULE PO SCH (20:34)
[2017-10-27 04:33] VITALS: BP 104/62
[2017-10-27] MEDS ORDERED: LEVOTHYROXINE SODIUM 125 MCG TABLET PO SCH (06:30)
[2017-10-27] MEDS: OMEPRAZOLE 20 MG CAPSULE PO SCH (09:11)
[2017-10-27] MEDS: RisperiDONE 1 MG TABLET PO SCH (09:11)
[2017-10-27] MEDS: DIVALPROEX SODIUM 500 MG DR TABLET PO SCH (09:11)
[2017-10-27] MEDS: NICOTINE 21 MG/24 HOUR PATCH TD SCH (09:12)
[2017-10-27 09:22] LABS: FREE T4 (FREE THYROXINE) 0.64 ng/dL (0.76-1.46); THYROID STIMULATING HORMONE 96.33 uIU/mL (0.36-3.74)
== END 2017-10-27 11:25 | disposition home or self-care (01) | DRG 885 ==
LOC: EMS 12:49 → B2X 16:12
PROVIDERS: ADMIT Psychiatry & Neurology Psychiatry; ATTEND Psychiatry & Neurology Psychiatry
DX: F25.9 Schizoaffective disorder, unspecified (principal); R45.851 Suicidal ideations; E03.9 Hypothyroidism, unspecified; F31.9 Bipolar disorder, unspecified; F41.9 Anxiety disorder, unspecified; G89.29 Other chronic pain; M54.5 Low back pain; J44.9 Chronic obstructive pulmonary disease, unspecified; K21.9 Gastro-esophageal reflux disease without esophagitis; F15.90 Other stimulant use, unspecified, uncomplicated; J45.909 Unspecified asthma, uncomplicated; F17.210 Nicotine dependence, cigarettes, uncomplicated; Z79.899 Other long term (current) drug therapy
CPT/HCPCS: 84439; 84443; 87081; 99285; G0480; J3535

== ENCOUNTER 2018-12-01 08:23 | Emergency (ER) | payer MEDICARE, OTHER ==
[~2018-12-01] VITALS: Ht 152.4 cm; Wt 66.4 kg
[~2018-12-01 08:23] MED LIST changes: -CITA20TA9 PO; +DIVA250T4 PO; +LEVO100 PO; -LEVO125T95 PO; -OMEG-135 PO; +RISP1TAB89 PO; +TRAZ-219 PO; -VITAD1000 PO
[2018-12-01] MEDS ORDERED: BUSP15 PO (08:35)
[2018-12-01] MEDS ORDERED: QUET200T PO (08:35)
[2018-12-01 09:28] VITALS: BP 108/90
== END 2018-12-01 09:30 | disposition home or self-care (01) ==
LOC: EMS 08:24
DX: T65.891A Toxic effect of other specified substances, accidental (unintentional), initial encounter (principal); F41.9 Anxiety disorder, unspecified; F31.9 Bipolar disorder, unspecified; F20.9 Schizophrenia, unspecified; E03.9 Hypothyroidism, unspecified; F17.210 Nicotine dependence, cigarettes, uncomplicated; F15.90 Other stimulant use, unspecified, uncomplicated; Z79.899 Other long term (current) drug therapy; Y93.89 Activity, other specified; Y92.89 Other specified places as the place of occurrence of the external cause; Y99.8 Other external cause status

== ENCOUNTER 2019-02-08 07:43 | Emergency (ER) | payer MEDICARE, OTHER ==
[~2019-02-08] VITALS: Ht 160 cm; Wt 72.7 kg
[~2019-02-08 07:43] MED LIST changes: +BUSP15 PO; -DIVA250T4 PO; -LITH300C3 PO; -OMEP20 PO; +QUET200T PO; -TRAZ-219 PO; +TRAZ-252 PO
[2019-02-08] MEDS ORDERED: ACETAMINOPHEN 500 MG TABLET PO ONE (09:30)
[2019-02-08 09:52] LABS: BASOPHILS % (AUTO) 0.9 % (0.0-2.0); EOSINOPHILS % (AUTO) 0.4 % (1.0-6.0); HEMATOCRIT 40.3 % (36-46); HEMOGLOBIN 13.4 g/dL (12.0-16.0); LYMPHOCYTES # (AUTO) 3.4 K/uL (1.0-4.8); LYMPHOCYTES % (AUTO) 22.2 % (22.0-44.0); MEAN CORPUSCULAR HEMOGLOBIN 29.1 pg (26.0-34.0); MEAN CORPUSCULAR HGB CONC 33.3 G/dL (31.0-37.0); MEAN CORPUSCULAR VOLUME 87 fL (80-100); MONOCYTES # (AUTO) 1.1 K/uL (0.1-1.0); NEUTROPHILS # (AUTO) 10.6 K/uL (1.8-7.7); NEUTROPHILS % (AUTO) 69.5 % (40.0-70.0); PLATELET COUNT (AUTO) 505 K/uL (150-450); RED BLOOD CELL COUNT(AUTO) 4.62 MIL/uL (4.00-5.20); RED CELL DISTRIBUTION WIDTH 14.5 % (11.5-14.5)
[2019-02-08 10:00] VITALS: BP 104/59
[2019-02-08 10:14] LABS: CALCIUM, TOTAL 10.6 mg/dL (8.8-10.5); CREATININE 1.12 mg/dL (0.60-1.30); POTASSIUM 3.6 mmol/L (3.5-5.1)
[2019-02-08 10:17] LABS: AMPHET/METH SCREEN,URINE POSITIVE (NEGATIVE); BARBITURATE SCREEN, URINE NEGATIVE (NEGATIVE); BENZODIAZEPINES SCREEN,URINE NEGATIVE (NEGATIVE); CANNABINOID SCREEN,URINE NEGATIVE (NEGATIVE); COCAINE SCREEN,URINE NEGATIVE (NEGATIVE); METHADONE SCREEN, URINE NEGATIVE (NEGATIVE); OPIATE SCREEN,URINE NEGATIVE (NEGATIVE)
[2019-02-08 10:18] LABS: PHENCYCLIDINE SCREEN,URINE NEGATIVE (NEGATIVE)
[2019-02-08 10:27] LABS: ALBUMIN 5.3 g/dL (3.4-5.0); BILIRUBIN,TOTAL 0.4 mg/dL (0.1-1.0); TOTAL PROTEIN, SERUM 9.6 g/dL (6.4-8.2)
[2019-02-08 10:33] LABS: APPEARANCE,URINE CLOUDY (CLEAR); GLUCOSE, URINE (UA) NEGATIVE (NEGATIVE); KETONES,URINE NEGATIVE (NEGATIVE); LEUKOCYTE ESTERASE ,URINE NEGATIVE (NEGATIVE); NITRATE,URINE NEGATIVE (NEGATIVE); OCCULT BLOOD,URINE NEGATIVE (NEGATIVE); PROTEIN,URINE POS 1+ (NEGATIVE); UROBILINOGEN,URINE 0.2 mg/dL (<=1.0)
[2019-02-08 10:36] LABS: BILIRUBIN,URINE PRELIM. POSITIVE (NEGATIVE)
[2019-02-08 10:37] LABS: BACTERIA,URINE None Seen /HPF (None Seen); RBC,URINE 0-2 /HPF (0-2); SQUAMOUS EPITHELIAL CELL,UR Many /LPF (None Seen); WBC,URINE 0-2 /HPF (0-5)
== END 2019-02-08 11:20 | disposition left against medical advice (07) ==
LOC: EMS 07:44
DX: R21 Rash and other nonspecific skin eruption (principal); R10.33 Periumbilical pain; R11.0 Nausea; E03.9 Hypothyroidism, unspecified; J44.9 Chronic obstructive pulmonary disease, unspecified; L40.9 Psoriasis, unspecified; M19.90 Unspecified osteoarthritis, unspecified site; F41.9 Anxiety disorder, unspecified; F31.9 Bipolar disorder, unspecified; F20.9 Schizophrenia, unspecified; F17.210 Nicotine dependence, cigarettes, uncomplicated; F15.90 Other stimulant use, unspecified, uncomplicated; Z79.899 Other long term (current) drug therapy
CPT/HCPCS: 99406

== ENCOUNTER 2019-10-31 14:02 | Emergency (ER) | payer BC, MEDICAID ==
[~2019-10-31] VITALS: Ht 160 cm; Wt 74.5 kg
[2019-10-31] MEDS ORDERED: CITA-106 PO (14:06)
[2019-10-31] MEDS ORDERED: LURA80 PO (14:06)
[2019-10-31 14:08] VITALS: BP 124/73
[2019-10-31 14:50] LABS: BASOPHILS % (AUTO) 1.1 % (0.0-2.0); EOSINOPHILS % (AUTO) 1.8 % (1.0-6.0); HEMATOCRIT 36.3 % (36-46); HEMOGLOBIN 12.1 g/dL (12.0-16.0); LYMPHOCYTES # (AUTO) 3.7 K/uL (1.0-4.8); LYMPHOCYTES % (AUTO) 32.7 % (22.0-44.0); MEAN CORPUSCULAR HEMOGLOBIN 28.7 pg (26.0-34.0); MEAN CORPUSCULAR HGB CONC 33.4 G/dL (31.0-37.0); MEAN CORPUSCULAR VOLUME 86 fL (80-100); MONOCYTES # (AUTO) 0.6 K/uL (0.1-1.0); MONOCYTES % (AUTO) 5.6 % (2.0-9.0); NEUTROPHILS # (AUTO) 6.7 K/uL (1.8-7.7); NEUTROPHILS % (AUTO) 58.8 % (40.0-70.0); PLATELET COUNT (AUTO) 366 K/uL (150-450); RED BLOOD CELL COUNT(AUTO) 4.22 MIL/uL (4.00-5.20)
[2019-10-31 14:59] LABS: ANION GAP 11 mmol/L (8-16); CALCIUM, TOTAL 8.9 mg/dL (8.8-10.5); CARBON DIOXIDE 25 mmol/L (22-29); CHLORIDE 105 mmol/L (98-107); CREATININE 0.85 mg/dL (0.60-1.30); GLOMERULAR FILTR. RATE CALC > 60 mL/min (>60); GLUCOSE,RANDOM 93 mg/dL (70-110); POTASSIUM 3.9 mmol/L (3.5-5.1); SODIUM SERUM 141 mmol/L (136-145); UREA NITROGEN, BLOOD 16 mg/dL (7-18)
[2019-10-31 15:04] LABS: ALANINE AMINOTRANSFERASE 27 U/L (12-78); ALBUMIN 3.6 g/dL (3.4-5.0); ALKALINE PHOSPHATASE 75 U/L (46-116); ASPARTATE AMINOTRANSFERASE 16 U/L (15-37); BILIRUBIN,TOTAL 0.1 mg/dL (0.1-1.0); TOTAL PROTEIN, SERUM 6.9 g/dL (6.4-8.2)
[2019-10-31 15:21] LABS: AMPHET/METH SCREEN,URINE NEGATIVE (NEGATIVE); BARBITURATE SCREEN, URINE NEGATIVE (NEGATIVE); BENZODIAZEPINES SCREEN,URINE NEGATIVE (NEGATIVE); CANNABINOID SCREEN,URINE NEGATIVE (NEGATIVE); COCAINE SCREEN,URINE NEGATIVE (NEGATIVE); METHADONE SCREEN, URINE NEGATIVE (NEGATIVE); OPIATE SCREEN,URINE NEGATIVE (NEGATIVE)
[2019-10-31 15:22] LABS: PHENCYCLIDINE SCREEN,URINE NEGATIVE (NEGATIVE)
[2019-10-31] MEDS ORDERED: TRAZ150 PO (16:04)
[2019-10-31] MEDS ORDERED: LORazepam 2 MG TABLET PO ONE (16:15)
== END 2019-10-31 16:34 | disposition home or self-care (01) ==
LOC: EMS 14:02
DX: F20.9 Schizophrenia, unspecified (principal); E03.9 Hypothyroidism, unspecified; G89.29 Other chronic pain; J44.9 Chronic obstructive pulmonary disease, unspecified; M19.90 Unspecified osteoarthritis, unspecified site; F41.9 Anxiety disorder, unspecified; F31.9 Bipolar disorder, unspecified; F17.210 Nicotine dependence, cigarettes, uncomplicated; F15.90 Other stimulant use, unspecified, uncomplicated; Z79.899 Other long term (current) drug therapy
CPT/HCPCS: 36415; 80053; 80307; 85025; 99284; G0480

== ENCOUNTER 2019-11-20 17:07 | Emergency (ER) | payer MEDICARE, MEDICAID ==
[~2019-11-20] VITALS: Ht 160 cm; Wt 76.4 kg
[~2019-11-20 17:07] MED LIST changes: +CITA-106 PO; +LURA80 PO; -QUET200T PO; -RISP1TAB89 PO; -TRAZ-252 PO; +TRAZ150 PO
[2019-11-20] MEDS ORDERED: CYCL10 PO (17:15)
[2019-11-20] MEDS ORDERED: IBUP-1506 PO (17:15)
[2019-11-20 17:23] VITALS: BP 116/74
[2019-11-20] MEDS ORDERED: ACETAMINOPHEN 500 MG TABLET PO ONE (17:45)
[2019-11-20] MEDS ORDERED: KETOROLAC TROMETHAMINE 30 MG/ML VIAL IM ONE (17:45)
[2019-11-20] MEDS ORDERED: LIDOCAINE 5% TRANSDERMAL PATCH TD ONE (17:45)
[2019-11-20] MEDS ORDERED: METHOCARBAMOL 500 MG TABLET PO ONE (17:45)
== END 2019-11-20 18:36 | disposition home or self-care (01) ==
LOC: EMS 17:09
DX: G89.29 Other chronic pain (principal); M54.5 Low back pain; F41.9 Anxiety disorder, unspecified; F31.9 Bipolar disorder, unspecified; J45.909 Unspecified asthma, uncomplicated; F20.9 Schizophrenia, unspecified; E03.9 Hypothyroidism, unspecified; F17.210 Nicotine dependence, cigarettes, uncomplicated; F19.90 Other psychoactive substance use, unspecified, uncomplicated
CPT/HCPCS: 96372; 99284; 99406; J1885

== ENCOUNTER 2019-11-22 05:44 | Emergency (ER) | payer MEDICARE, MEDICAID ==
[~2019-11-22] VITALS: Ht 160 cm; Wt 76.4 kg
[~2019-11-22 05:44] MED LIST changes: +CYCL10 PO; +IBUP-1506 PO
[2019-11-22] MEDS ORDERED: ONDANSETRON HCL 4 MG/2 ML VIAL IM ONE (06:45)
[2019-11-22] MEDS ORDERED: HYDROmorphone 2 MG/ML SYRINGE IM ONE (06:45)
[2019-11-22] MEDS ORDERED: KETOROLAC TROMETHAMINE 60 MG/2 ML VIAL IM ONE (06:45)
[2019-11-22 06:58] LABS: BASOPHILS % (AUTO) 0.6 % (0.0-2.0); EOSINOPHILS % (AUTO) 1.7 % (1.0-6.0); HEMATOCRIT 34.8 % (36-46); HEMOGLOBIN 11.8 g/dL (12.0-16.0); LYMPHOCYTES # (AUTO) 2.2 K/uL (1.0-4.8); LYMPHOCYTES % (AUTO) 25.4 % (22.0-44.0); MEAN CORPUSCULAR HEMOGLOBIN 29.2 pg (26.0-34.0); MEAN CORPUSCULAR HGB CONC 33.8 G/dL (31.0-37.0); MEAN CORPUSCULAR VOLUME 87 fL (80-100); MONOCYTES # (AUTO) 0.5 K/uL (0.1-1.0); MONOCYTES % (AUTO) 6.2 % (2.0-9.0); NEUTROPHILS # (AUTO) 5.6 K/uL (1.8-7.7); NEUTROPHILS % (AUTO) 66.1 % (40.0-70.0); PLATELET COUNT (AUTO) 313 K/uL (150-450); RED BLOOD CELL COUNT(AUTO) 4.02 MIL/uL (4.00-5.20); RED CELL DISTRIBUTION WIDTH 15.9 % (11.5-14.5)
[2019-11-22 07:03] LABS: APPEARANCE,URINE CLOUDY (CLEAR); BILIRUBIN,URINE NEGATIVE (NEGATIVE); GLUCOSE, URINE (UA) NEGATIVE (NEGATIVE); KETONES,URINE NEGATIVE (NEGATIVE); LEUKOCYTE ESTERASE ,URINE NEGATIVE (NEGATIVE); NITRATE,URINE NEGATIVE (NEGATIVE); OCCULT BLOOD,URINE TRACE (NEGATIVE); PROTEIN,URINE NEGATIVE (NEGATIVE); UROBILINOGEN,URINE 0.2 mg/dL (<=1.0)
[2019-11-22 07:06] LABS: CALCIUM, TOTAL 8.8 mg/dL (8.8-10.5); CREATININE 1.05 mg/dL (0.60-1.30); POTASSIUM 3.8 mmol/L (3.5-5.1)
[2019-11-22 07:16] LABS: RBC,URINE None Seen /HPF (0-2)
[2019-11-22 07:17] LABS: BACTERIA,URINE None Seen /HPF (None Seen); SQUAMOUS EPITHELIAL CELL,UR Moderate /LPF (None Seen); WBC,URINE 0-2 /HPF (0-5)
[2019-11-22 07:18] LABS: ALBUMIN 3.7 g/dL (3.4-5.0); BILIRUBIN,TOTAL 0.2 mg/dL (0.1-1.0); TOTAL PROTEIN, SERUM 7.1 g/dL (6.4-8.2)
[2019-11-22 07:59] VITALS: BP 117/60
== END 2019-11-22 08:06 | disposition home or self-care (01) ==
LOC: EMS 05:44
DX: S39.012A Strain of muscle, fascia and tendon of lower back, initial encounter (principal); F41.9 Anxiety disorder, unspecified; J45.909 Unspecified asthma, uncomplicated; F31.9 Bipolar disorder, unspecified; E03.9 Hypothyroidism, unspecified; F20.9 Schizophrenia, unspecified; G89.29 Other chronic pain; F17.210 Nicotine dependence, cigarettes, uncomplicated; F19.90 Other psychoactive substance use, unspecified, uncomplicated; X58.XXXA Exposure to other specified factors, initial encounter; Y93.89 Activity, other specified; Y92.89 Other specified places as the place of occurrence of the external cause; Y99.8 Other external cause status
CPT/HCPCS: 36415; 72100; 80053; 81001; 83690; 84702; 85025; 96372; 99284; J1170; J1885; J2405

== ENCOUNTER 2019-12-06 15:29 | Emergency (ER) | payer MEDICARE, MEDICAID ==
[~2019-12-06] VITALS: Ht 160 cm; Wt 77.3 kg
[2019-12-06 15:34] VITALS: BP 142/70
[2019-12-06] MEDS ORDERED: METHOCARBAMOL 750 MG TABLET PO ONE (16:45)
[2019-12-06] MEDS ORDERED: KETOROLAC TROMETHAMINE 60 MG/2 ML VIAL IM ONE (16:45)
[2019-12-06] MEDS ORDERED: LORazepam 2 MG/ML VIAL IM ONE (16:45)
== END 2019-12-06 17:24 | disposition home or self-care (01) ==
LOC: EMS 15:29
DX: M54.5 Low back pain (principal); G89.29 Other chronic pain; F41.9 Anxiety disorder, unspecified; J45.909 Unspecified asthma, uncomplicated; F31.9 Bipolar disorder, unspecified; F20.9 Schizophrenia, unspecified; F17.210 Nicotine dependence, cigarettes, uncomplicated; F19.90 Other psychoactive substance use, unspecified, uncomplicated
CPT/HCPCS: 81002; 81025; 96372; 99284; 99406; J1885; J2060

== ENCOUNTER 2019-12-12 10:10 | Emergency (ER) | payer MEDICARE, MEDICAID ==
[~2019-12-12] VITALS: Ht 160 cm; Wt 76.4 kg
[2019-12-12] MEDS ORDERED: TRAM50TA4 PO (10:27)
[2019-12-12] MEDS ORDERED: LORazepam 2 MG/ML VIAL IM ONE (11:15)
[2019-12-12 12:27] VITALS: BP 116/72
== END 2019-12-12 12:51 | disposition home or self-care (01) ==
LOC: EMS 10:10
DX: F41.9 Anxiety disorder, unspecified (principal); E03.9 Hypothyroidism, unspecified; G89.29 Other chronic pain; J44.9 Chronic obstructive pulmonary disease, unspecified; M19.90 Unspecified osteoarthritis, unspecified site; F20.9 Schizophrenia, unspecified; F31.9 Bipolar disorder, unspecified; F15.90 Other stimulant use, unspecified, uncomplicated; F17.210 Nicotine dependence, cigarettes, uncomplicated; Z79.899 Other long term (current) drug therapy
CPT/HCPCS: 96372; 99283; J2060

== ENCOUNTER 2020-01-28 09:53 | Inpatient (IN) | payer MEDICARE, MEDICAID ==
[~2020-01-28] VITALS: Ht 157.5 cm; Wt 73.5 kg
[~2020-01-28 09:53] MED LIST changes: -CITA-106 PO; +CITA-144 PO; -LURA80 PO; +LURA80TA2 PO; +TRAM50TA4 PO
[2020-01-28 10:33] LABS: BASOPHILS % (AUTO) 0.4 % (0.0-2.0); EOSINOPHILS % (AUTO) 1.9 % (1.0-6.0); HEMATOCRIT 38.2 % (36-46); HEMOGLOBIN 12.8 g/dL (12.0-16.0); LYMPHOCYTES # (AUTO) 1.9 K/uL (1.0-4.8); LYMPHOCYTES % (AUTO) 18.4 % (22.0-44.0); MEAN CORPUSCULAR HEMOGLOBIN 28.6 pg (26.0-34.0); MEAN CORPUSCULAR HGB CONC 33.5 G/dL (31.0-37.0); MEAN CORPUSCULAR VOLUME 86 fL (80-100); MONOCYTES # (AUTO) 0.6 K/uL (0.1-1.0); NEUTROPHILS # (AUTO) 7.7 K/uL (1.8-7.7); NEUTROPHILS % (AUTO) 73.3 % (40.0-70.0); PLATELET COUNT (AUTO) 336 K/uL (150-450); RED BLOOD CELL COUNT(AUTO) 4.46 MIL/uL (4.00-5.20); RED CELL DISTRIBUTION WIDTH 14.5 % (11.5-14.5)
[2020-01-28 10:51] LABS: ANION GAP 11 mmol/L (8-16); CALCIUM, TOTAL 9.4 mg/dL (8.8-10.5); CARBON DIOXIDE 26 mmol/L (22-29); CHLORIDE 105 mmol/L (98-107); CREATININE 0.81 mg/dL (0.60-1.30); GLOMERULAR FILTR. RATE CALC > 60 mL/min (>60); GLUCOSE,RANDOM 99 mg/dL (70-110); POTASSIUM 4.4 mmol/L (3.5-5.1); SODIUM SERUM 142 mmol/L (136-145); UREA NITROGEN, BLOOD 8 mg/dL (7-18)
[2020-01-28 10:53] LABS: ALANINE AMINOTRANSFERASE 25 U/L (12-78); ALBUMIN 3.9 g/dL (3.4-5.0); ALKALINE PHOSPHATASE 75 U/L (46-116); ASPARTATE AMINOTRANSFERASE 16 U/L (15-37); BILIRUBIN,TOTAL 0.3 mg/dL (0.1-1.0); TOTAL PROTEIN, SERUM 7.1 g/dL (6.4-8.2)
[2020-01-28 10:59] LABS: AMPHET/METH SCREEN,URINE NEGATIVE (NEGATIVE); BARBITURATE SCREEN, URINE NEGATIVE (NEGATIVE); BENZODIAZEPINES SCREEN,URINE NEGATIVE (NEGATIVE); CANNABINOID SCREEN,URINE NEGATIVE (NEGATIVE); COCAINE SCREEN,URINE NEGATIVE (NEGATIVE); METHADONE SCREEN, URINE NEGATIVE (NEGATIVE); OPIATE SCREEN,URINE NEGATIVE (NEGATIVE)
[2020-01-28 11:01] LABS: PHENCYCLIDINE SCREEN,URINE NEGATIVE (NEGATIVE)
[2020-01-28] MEDS ORDERED: ONDANSETRON HCL 4 MG/2 ML VIAL IM ONE (11:15)
[2020-01-28 13:33] LABS: APPEARANCE,URINE CLEAR (CLEAR); BILIRUBIN,URINE NEGATIVE (NEGATIVE); GLUCOSE, URINE (UA) NEGATIVE (NEGATIVE); KETONES,URINE NEGATIVE (NEGATIVE); LEUKOCYTE ESTERASE ,URINE NEGATIVE (NEGATIVE); NITRATE,URINE NEGATIVE (NEGATIVE); OCCULT BLOOD,URINE NEGATIVE (NEGATIVE); PH,URINE 7.5 (5.0-8.0); PROTEIN,URINE NEGATIVE (NEGATIVE); UROBILINOGEN,URINE 0.2 mg/dL (<=1.0)
[2020-01-28] MEDS: LORazepam 2 MG TABLET PO PRN (18:36)
[2020-01-28] MEDS: HALOPERIDOL 5 MG TABLET PO PRN (19:51)
[2020-01-28 19:57] VITALS: BP 120/79
[2020-01-28] MEDS ORDERED: ALBUTEROL SULFATE HFA 90 MCG/PUFF 8 GM INHALER IH PRN (20:00)
[2020-01-28] MEDS ORDERED: ACETAMINOPHEN 325 MG TABLET PO PRN (20:00)
[2020-01-28] MEDS ORDERED: MAG HYDROX/AL HYDROX/SIMETH ES 30 ML SUSPENSION UDCUP PO PRN (20:00)
[2020-01-28] MEDS ORDERED: PETROLATUM,WHITE 28 GM JELLY TP PRN (20:00)
[2020-01-28] MEDS ORDERED: BENZOCAINE/MENTHOL LOZENGE MM PRN (20:00)
[2020-01-28] MEDS ORDERED: CloNIDine HCL 0.1 MG TABLET PO PRN (20:00)
[2020-01-28] MEDS ORDERED: ONDANSETRON HCL 4 MG TABLET PO PRN (20:00)
[2020-01-28] MEDS ORDERED: LOPERAMIDE HCL 2 MG CAPSULE PO PRN (20:00)
[2020-01-28] MEDS ORDERED: BACITRACIN 28.4 GM OINTMENT TP PRN (20:00)
[2020-01-28] MEDS ORDERED: MAGNESIUM HYDROXIDE SUSPENSION 30 ML UDCUP PO PRN (20:00)
[2020-01-28] MEDS ORDERED: DOCUSATE SODIUM 100 MG CAPSULE PO PRN (20:00)
[2020-01-28] MEDS ORDERED: IBUPROFEN 600 MG TABLET PO PRN (20:00)
[2020-01-28] MEDS ORDERED: OMEPRAZOLE 20 MG CAPSULE PO PRN (20:00)
[2020-01-29 04:29] VITALS: BP 101/75
[2020-01-29] MEDS: LEVOTHYROXINE SODIUM 125 MCG TABLET PO SCH (06:17)
[2020-01-29] MEDS: NICOTINE 21 MG/24 HOUR PATCH TD SCH (09:01)
[2020-01-29] MEDS: LORazepam 2 MG TABLET PO PRN ×2 (09:23→14:04)
[2020-01-29] MEDS: HALOPERIDOL 5 MG TABLET PO PRN ×2 (09:30→14:04)
[2020-01-29] MEDS ORDERED: DiphenhydrAMINE HCL 50 MG/ML VIAL IM ONE (16:15)
[2020-01-29] MEDS ORDERED: LORazepam 2 MG/ML VIAL IM ONE (16:15)
[2020-01-30] MEDS: ZOLPIDEM TARTRATE 10 MG TABLET PO PRN ×2 (00:24→20:24)
[2020-01-30] MEDS: LORazepam 2 MG TABLET PO PRN ×4 (02:25→16:44)
[2020-01-30] MEDS: LEVOTHYROXINE SODIUM 125 MCG TABLET PO SCH (06:12)
[2020-01-30 07:08] VITALS: BP 113/64
[2020-01-30] MEDS: NICOTINE 21 MG/24 HOUR PATCH TD SCH (08:13)
[2020-01-30] MEDS: HALOPERIDOL 5 MG TABLET PO PRN ×4 (08:15→22:56)
[2020-01-30] MEDS ORDERED: LITHIUM CARBONATE 300 MG CAPSULE PO SCH (09:00)
[2020-01-30] MEDS ORDERED: LURASIDONE HCL 80 MG TABLET PO SCH (17:00)
[2020-01-31 03:29] VITALS: BP 105/76
[2020-01-31] MEDS: LEVOTHYROXINE SODIUM 125 MCG TABLET PO SCH (06:24)
[2020-01-31] MEDS: LORazepam 2 MG TABLET PO PRN (06:33)
[2020-01-31] MEDS ORDERED: LEVO125T95 PO (07:37)
[2020-01-31] MEDS: HALOPERIDOL 5 MG TABLET PO PRN (08:26)
[2020-01-31] MEDS: NICOTINE 21 MG/24 HOUR PATCH TD SCH (08:27)
== END 2020-01-31 11:49 | disposition home or self-care (01) | DRG 885 ==
LOC: EMS 09:57 → B3A 13:03
PROVIDERS: ADMIT Psychiatry & Neurology Psychiatry; ATTEND Psychiatry & Neurology Psychiatry
DX: F31.4 Bipolar disorder, current episode depressed, severe, without psychotic features (principal); R45.851 Suicidal ideations; J44.9 Chronic obstructive pulmonary disease, unspecified; E03.9 Hypothyroidism, unspecified; F20.9 Schizophrenia, unspecified; F41.9 Anxiety disorder, unspecified; M19.90 Unspecified osteoarthritis, unspecified site; Z72.0 Tobacco use; L40.9 Psoriasis, unspecified; M54.9 Dorsalgia, unspecified; G47.00 Insomnia, unspecified; K59.00 Constipation, unspecified; F19.10 Other psychoactive substance abuse, uncomplicated; J45.909 Unspecified asthma, uncomplicated
CPT/HCPCS: G0480; J1200; J2060; J2405

== ENCOUNTER 2020-01-28 14:51 | Emergency (ER) | payer MEDICARE, MEDICAID ==
[~2020-01-28] VITALS: Ht 162.6 cm; Wt 63.6 kg
[2020-01-28 17:37] VITALS: BP 118/72
== END 2020-01-28 17:38 | disposition home or self-care (01) ==
LOC: EMS 14:53
DX: R50.9 Fever, unspecified (principal); F41.9 Anxiety disorder, unspecified; J45.909 Unspecified asthma, uncomplicated; F31.9 Bipolar disorder, unspecified; J44.9 Chronic obstructive pulmonary disease, unspecified; F20.9 Schizophrenia, unspecified; F17.210 Nicotine dependence, cigarettes, uncomplicated; G89.29 Other chronic pain

== ENCOUNTER 2020-02-01 11:26 | Emergency (ER) | payer MEDICARE, MEDICAID ==
[~2020-02-01] VITALS: Ht 157.5 cm; Wt 74.1 kg
[~2020-02-01 11:26] MED LIST changes: -BUSP15 PO; -CITA-144 PO; -CYCL10 PO; -IBUP-1506 PO; -LEVO100 PO; +LEVO125T95 PO; -TRAM50TA4 PO; -TRAZ150 PO
[2020-02-01] MEDS ORDERED: LORazepam 2 MG/ML VIAL IM ONE (12:15)
[2020-02-01 13:20] VITALS: BP 106/59
== END 2020-02-01 12:50 | disposition left against medical advice (07) ==
LOC: EMS 11:27
DX: F41.9 Anxiety disorder, unspecified (principal); F17.210 Nicotine dependence, cigarettes, uncomplicated; J44.9 Chronic obstructive pulmonary disease, unspecified; F32.9 Major depressive disorder, single episode, unspecified; F20.9 Schizophrenia, unspecified; E03.9 Hypothyroidism, unspecified
CPT/HCPCS: 96372; 99283; J2060

== ENCOUNTER 2020-02-05 13:15 | Emergency (ER) | payer MEDICARE, MEDICAID ==
[~2020-02-05] VITALS: Ht 157.5 cm; Wt 73.6 kg
[2020-02-05 13:07] VITALS: BP 108/57
[2020-02-05] MEDS ORDERED: LORazepam 2 MG TABLET PO ONE (14:15)
== END 2020-02-05 14:26 | disposition home or self-care (01) ==
LOC: EMS 13:15
DX: F41.9 Anxiety disorder, unspecified (principal); R00.2 Palpitations; R00.0 Tachycardia, unspecified; J45.909 Unspecified asthma, uncomplicated; F31.9 Bipolar disorder, unspecified; F20.9 Schizophrenia, unspecified; F17.210 Nicotine dependence, cigarettes, uncomplicated; G89.29 Other chronic pain
CPT/HCPCS: 99406

== ENCOUNTER 2020-03-06 15:10 | Emergency (ER) | payer MEDICARE, MEDICAID ==
[~2020-03-06] VITALS: Ht 160 cm; Wt 73.6 kg
[2020-03-06] MEDS ORDERED: DiphenhydrAMINE HCL 50 MG/ML VIAL IVP ONE (15:45)
[2020-03-06] MEDS ORDERED: METOCLOPRAMIDE HCL 5 MG/ML 2 ML VIAL IVP ONE (15:45)
[2020-03-06] MEDS ORDERED: ACETAMINOPHEN 325 MG TABLET PO ONE (17:45)
[2020-03-06] MEDS ORDERED: IBUPROFEN 800 MG TABLET PO ONE (17:45)
[2020-03-06 18:25] VITALS: BP 101/62
== END 2020-03-06 18:30 | disposition home or self-care (01) ==
LOC: EMS 15:11
DX: R51 Headache (principal); R11.0 Nausea; F41.9 Anxiety disorder, unspecified; J45.909 Unspecified asthma, uncomplicated; F31.9 Bipolar disorder, unspecified; F20.9 Schizophrenia, unspecified; F17.210 Nicotine dependence, cigarettes, uncomplicated
CPT/HCPCS: 70450; 96374; 96375; 99284; J1200; J2765

== ENCOUNTER 2020-03-19 12:18 | Emergency (ER) | payer MEDICARE, MEDICAID ==
[~2020-03-19] VITALS: Ht 160 cm; Wt 73.6 kg
[2020-03-19] MEDS ORDERED: TRAZ150 PO (12:24)
[2020-03-19] MEDS ORDERED: LORazepam 1 MG TABLET PO ONE (14:45)
[2020-03-19 15:21] VITALS: BP 121/78
== END 2020-03-19 15:22 | disposition home or self-care (01) ==
LOC: EMS 12:20
DX: F41.9 Anxiety disorder, unspecified (principal); F17.210 Nicotine dependence, cigarettes, uncomplicated; J45.909 Unspecified asthma, uncomplicated; F31.9 Bipolar disorder, unspecified; F20.9 Schizophrenia, unspecified; G89.29 Other chronic pain
CPT/HCPCS: 99406

== ENCOUNTER 2020-07-06 09:30 | Emergency (ER) | payer MEDICARE, MEDICAID ==
[~2020-07-06] VITALS: Ht 160 cm; Wt 76.4 kg
[~2020-07-06 09:30] MED LIST changes: +TRAZ150 PO
[2020-07-06] MEDS ORDERED: ZOLP10TA8 PO (09:38)
[2020-07-06 10:54] VITALS: BP 120/65
== END 2020-07-06 10:56 | disposition home or self-care (01) ==
LOC: EMS 09:31
DX: G47.00 Insomnia, unspecified (principal); F41.9 Anxiety disorder, unspecified; F31.9 Bipolar disorder, unspecified; J45.909 Unspecified asthma, uncomplicated; F20.9 Schizophrenia, unspecified; G89.29 Other chronic pain; F17.210 Nicotine dependence, cigarettes, uncomplicated

== ENCOUNTER 2021-10-24 18:39 | Inpatient (IN) | payer MEDICARE, MEDICAID ==
[~2021-10-24] VITALS: Ht 157.5 cm; Wt 74.6 kg
[~2021-10-24 18:39] MED LIST changes: -TRAZ150 PO; +TRAZ150T80 PO; +ZOLP10TA8 PO
[2021-10-24 19:31] VITALS: BP 110/60
[2021-10-24] MEDS ORDERED: MAGNESIUM HYDROXIDE SUSPENSION 30 ML UDCUP PO PRN (20:15)
[2021-10-24] MEDS ORDERED: MAG HYDROX/AL HYDROX/SIMETH ES 30 ML SUSPENSION UDCUP PO PRN (20:15)
[2021-10-24] MEDS: TraZODone HCL 150 MG TABLET PO SCH (21:19)
[2021-10-24] MEDS: LURASIDONE HCL 80 MG TABLET PO SCH (21:19)
[2021-10-24] MEDS: ZOLPIDEM TARTRATE 10 MG TABLET PO PRN (21:24)
[2021-10-24 21:37] VITALS: BP 124/65
[2021-10-25 00:25] VITALS: BP 120/75
[2021-10-25] MEDS ORDERED: BACITRACIN 28 GM OINTMENT TP PRN (06:15)
[2021-10-25] MEDS ORDERED: OMEPRAZOLE 20 MG CAPSULE PO PRN (06:15)
[2021-10-25] MEDS ORDERED: IBUPROFEN 600 MG TABLET PO PRN (06:15)
[2021-10-25] MEDS ORDERED: PETROLATUM,WHITE 28 GM JELLY TP PRN (06:15)
[2021-10-25] MEDS ORDERED: ALBUTEROL SULFATE HFA 90 MCG/PUFF 8 GM INHALER IH PRN (06:15)
[2021-10-25] MEDS ORDERED: LOPERAMIDE HCL 2 MG CAPSULE PO PRN (06:15)
[2021-10-25] MEDS ORDERED: BENZOCAINE/MENTHOL LOZENGE PO PRN (06:15)
[2021-10-25] MEDS ORDERED: CloNIDine HCL 0.1 MG TABLET PO PRN (06:15)
[2021-10-25] MEDS ORDERED: DOCUSATE SODIUM 100 MG CAPSULE PO PRN (06:15)
[2021-10-25] MEDS: LEVOTHYROXINE SODIUM 150 MCG TABLET PO SCH (06:31)
[2021-10-25 07:41] LABS: BILIRUBIN,URINE NEGATIVE (NEGATIVE); GLUCOSE, URINE (UA) NEGATIVE (NEGATIVE); KETONES,URINE NEGATIVE (NEGATIVE); LEUKOCYTE ESTERASE ,URINE NEGATIVE (NEGATIVE); NITRATE,URINE NEGATIVE (NEGATIVE); OCCULT BLOOD,URINE NEGATIVE (NEGATIVE); PH,URINE 6.5 (5.0-8.0); PROTEIN,URINE NEGATIVE (NEGATIVE); UROBILINOGEN,URINE 0.2 mg/dL (<=1.0)
[2021-10-25] MEDS: ATORVASTATIN CALCIUM 20 MG TABLET PO SCH (08:08)
[2021-10-25 08:09] LABS: APPEARANCE,URINE CLEAR (CLEAR)
[2021-10-25] MEDS: PANTOPRAZOLE SODIUM 40 MG DR TABLET PO SCH (08:09)
[2021-10-25] MEDS: LORazepam 2 MG TABLET PO PRN ×2 (09:32→21:34)
[2021-10-25 09:43] VITALS: BP 118/58
[2021-10-25 16:44] VITALS: BP 113/78
[2021-10-25] MEDS: TraZODone HCL 150 MG TABLET PO SCH (20:29)
[2021-10-25] MEDS: LURASIDONE HCL 80 MG TABLET PO SCH (20:29)
[2021-10-25] MEDS: ZOLPIDEM TARTRATE 10 MG TABLET PO PRN (20:37)
[2021-10-26 06:17] VITALS: BP 118/72
[2021-10-26] MEDS: LEVOTHYROXINE SODIUM 150 MCG TABLET PO SCH (06:37)
[2021-10-26 07:23] LABS: BASOPHILS % (AUTO) 0.4 % (0.0-2.0); EOSINOPHILS % (AUTO) 1.4 % (1.0-6.0); HEMOGLOBIN 12.2 g/dL (12.0-16.0); LYMPHOCYTES # (AUTO) 2.4 K/uL (1.0-4.8); LYMPHOCYTES % (AUTO) 31.4 % (22.0-44.0); MEAN CORPUSCULAR HEMOGLOBIN 27.8 pg (26.0-34.0); MEAN CORPUSCULAR HGB CONC 34.8 G/dL (31.0-37.0); MEAN CORPUSCULAR VOLUME 80 fL (80-100); MONOCYTES # (AUTO) 0.7 K/uL (0.1-1.0); MONOCYTES % (AUTO) 8.4 % (2.0-9.0); NEUTROPHILS # (AUTO) 4.5 K/uL (1.8-7.7); NEUTROPHILS % (AUTO) 58.4 % (40.0-70.0); PLATELET COUNT (AUTO) 302 K/uL (150-450); RED BLOOD CELL COUNT(AUTO) 4.38 MIL/uL (4.00-5.20); RED CELL DISTRIBUTION WIDTH 15.4 % (11.5-14.5)
[2021-10-26 07:29] LABS: HEMOGLOBIN A1C 5.3 % (3.8-5.6)
[2021-10-26 08:23] VITALS: BP 126/89
[2021-10-26 08:31] LABS: ALANINE AMINOTRANSFERASE 22 U/L (12-78); ALBUMIN 3.3 g/dL (3.4-5.0); ALKALINE PHOSPHATASE 76 U/L (46-116); ANION GAP 8 mmol/L (8-16); ASPARTATE AMINOTRANSFERASE 12 U/L (15-37); BILIRUBIN,TOTAL 0.3 mg/dL (0.1-1.0); CALCIUM, TOTAL 8.8 mg/dL (8.8-10.5); CARBON DIOXIDE 27 mmol/L (22-29); CHLORIDE 104 mmol/L (98-107); CHOL/HDL RATIO 4.5 (3.9-5.7); CHOLESTEROL 191 mg/dL (131-200); CREATININE 0.84 mg/dL (0.60-1.30); GLOMERULAR FILTR. RATE CALC > 60 mL/min (>60); GLUCOSE,RANDOM 104 mg/dL (70-110); HDL CHOLESTEROL 42 mg/dL (40-60); LDL CHOL (CALC.) 115 mg/dL (0-130); PHOSPHORUS 4.3 mg/dL (2.5-4.9); POTASSIUM 3.6 mmol/L (3.5-5.1); SODIUM SERUM 139 mmol/L (136-145); THYROID STIMULATING HORMONE 3.28 uIU/mL (0.36-3.74); TRIGLYCERIDES 168 mg/dL (15-150); UREA NITROGEN, BLOOD 19 mg/dL (7-18)
[2021-10-26] MEDS: PANTOPRAZOLE SODIUM 40 MG DR TABLET PO SCH (08:34)
[2021-10-26] MEDS: ATORVASTATIN CALCIUM 20 MG TABLET PO SCH (08:34)
[2021-10-26] MEDS: LORazepam 2 MG TABLET PO PRN ×3 (08:35→20:26)
[2021-10-26 16:23] VITALS: BP 130/72
[2021-10-26] MEDS: LURASIDONE HCL 80 MG TABLET PO SCH (20:20)
[2021-10-26] MEDS: TraZODone HCL 150 MG TABLET PO SCH (20:21)
[2021-10-27] MEDS: LEVOTHYROXINE SODIUM 150 MCG TABLET PO SCH (06:35)
[2021-10-27 06:36] VITALS: BP 128/76
[2021-10-27] MEDS: HALOPERIDOL 5 MG TABLET PO PRN (08:14)
[2021-10-27] MEDS: LORazepam 2 MG TABLET PO PRN ×3 (08:14→20:29)
[2021-10-27] MEDS: PANTOPRAZOLE SODIUM 40 MG DR TABLET PO SCH (08:14)
[2021-10-27] MEDS: ATORVASTATIN CALCIUM 20 MG TABLET PO SCH (08:14)
[2021-10-27 08:50] VITALS: BP 121/75
[2021-10-27 16:07] VITALS: BP 116/82
[2021-10-27 18:01] VITALS: BP 124/80
[2021-10-27] MEDS: ACETAMINOPHEN 325 MG TABLET PO PRN (18:01)
[2021-10-27] MEDS: LURASIDONE HCL 80 MG TABLET PO SCH (20:26)
[2021-10-27] MEDS: TraZODone HCL 150 MG TABLET PO SCH (20:26)
[2021-10-28 01:00] VITALS: BP 118/76
[2021-10-28] MEDS: LORazepam 2 MG TABLET PO PRN ×3 (01:11→16:50)
[2021-10-28] MEDS: ZOLPIDEM TARTRATE 10 MG TABLET PO PRN (01:12)
[2021-10-28] MEDS: LEVOTHYROXINE SODIUM 150 MCG TABLET PO SCH (06:31)
[2021-10-28] MEDS: PANTOPRAZOLE SODIUM 40 MG DR TABLET PO SCH (08:12)
[2021-10-28] MEDS: ATORVASTATIN CALCIUM 20 MG TABLET PO SCH (08:12)
[2021-10-28] MEDS: NICOTINE 21 MG/24 HOUR PATCH TD SCH (08:35)
[2021-10-28 08:37] VITALS: BP 108/59
[2021-10-28] MEDS: HALOPERIDOL 5 MG TABLET PO PRN (11:13)
[2021-10-28 16:27] VITALS: BP 135/92
[2021-10-28] MEDS: ACETAMINOPHEN 325 MG TABLET PO PRN (17:09)
[2021-10-28] MEDS: LURASIDONE HCL 80 MG TABLET PO SCH (20:11)
[2021-10-28] MEDS: TraZODone HCL 150 MG TABLET PO SCH (20:11)
[2021-10-29] MEDS: LEVOTHYROXINE SODIUM 150 MCG TABLET PO SCH (06:37)
[2021-10-29 06:38] VITALS: BP 122/86
[2021-10-29] MEDS: ATORVASTATIN CALCIUM 20 MG TABLET PO SCH (08:09)
[2021-10-29] MEDS: PANTOPRAZOLE SODIUM 40 MG DR TABLET PO SCH (08:09)
[2021-10-29 08:14] VITALS: BP 108/107
[2021-10-29] MEDS: NICOTINE 21 MG/24 HOUR PATCH TD SCH (08:17)
[2021-10-29] MEDS: LORazepam 2 MG TABLET PO PRN ×2 (08:19→16:47)
[2021-10-29 09:36] LABS: GLUCOMETER DEV NAME(LOC) POC.BV
[2021-10-29 16:28] VITALS: BP 120/76
[2021-10-29] MEDS: TraZODone HCL 150 MG TABLET PO SCH (20:15)
[2021-10-29] MEDS: LURASIDONE HCL 80 MG TABLET PO SCH (21:18)
[2021-10-29] MEDS: ONDANSETRON HCL 4 MG TABLET PO PRN (21:18)
[2021-10-30 03:09] VITALS: BP 118/67
[2021-10-30] MEDS: LORazepam 2 MG TABLET PO PRN ×2 (04:47→14:03)
[2021-10-30] MEDS: LEVOTHYROXINE SODIUM 150 MCG TABLET PO SCH (06:51)
[2021-10-30 08:12] VITALS: BP 104/57
[2021-10-30] MEDS: PANTOPRAZOLE SODIUM 40 MG DR TABLET PO SCH (08:13)
[2021-10-30] MEDS: ATORVASTATIN CALCIUM 20 MG TABLET PO SCH (08:13)
[2021-10-30] MEDS: NICOTINE 21 MG/24 HOUR PATCH TD SCH (08:16)
[2021-10-30 09:30] VITALS: BP 110/68
[2021-10-30] MEDS: ACETAMINOPHEN 325 MG TABLET PO PRN (15:56)
[2021-10-30 16:09] VITALS: BP 109/76
[2021-10-30] MEDS: ONDANSETRON HCL 4 MG TABLET PO PRN (18:10)
[2021-10-30] MEDS: TraZODone HCL 150 MG TABLET PO SCH (20:03)
[2021-10-30] MEDS: LURASIDONE HCL 80 MG TABLET PO SCH (20:03)
[2021-10-31] MEDS: ZOLPIDEM TARTRATE 10 MG TABLET PO PRN ×2 (00:33→20:09)
[2021-10-31 00:36] VITALS: BP 107/61
[2021-10-31] MEDS: LEVOTHYROXINE SODIUM 150 MCG TABLET PO SCH (06:48)
[2021-10-31] MEDS: ATORVASTATIN CALCIUM 20 MG TABLET PO SCH (08:19)
[2021-10-31] MEDS: PANTOPRAZOLE SODIUM 40 MG DR TABLET PO SCH (08:19)
[2021-10-31] MEDS: NICOTINE 21 MG/24 HOUR PATCH TD SCH (08:19)
[2021-10-31 08:50] VITALS: BP 99/61
[2021-10-31 15:31] LABS: GLUCOMETER DEV NAME(LOC) POC.BV
[2021-10-31 16:13] VITALS: BP 103/71
[2021-10-31 18:43] VITALS: BP 112/66
[2021-10-31] MEDS: ACETAMINOPHEN 325 MG TABLET PO PRN (18:43)
[2021-10-31] MEDS: LURASIDONE HCL 80 MG TABLET PO SCH (20:09)
[2021-10-31] MEDS: TraZODone HCL 150 MG TABLET PO SCH (20:09)
[2021-10-31] MEDS: ONDANSETRON HCL 4 MG TABLET PO PRN (20:20)
[2021-11-01 03:43] VITALS: BP 110/86
[2021-11-01] MEDS: LEVOTHYROXINE SODIUM 150 MCG TABLET PO SCH (06:40)
[2021-11-01] MEDS: ATORVASTATIN CALCIUM 20 MG TABLET PO SCH (08:06)
[2021-11-01] MEDS: PANTOPRAZOLE SODIUM 40 MG DR TABLET PO SCH (08:07)
[2021-11-01] MEDS: NICOTINE 21 MG/24 HOUR PATCH TD SCH (08:07)
[2021-11-01 08:23] VITALS: BP 97/65
[2021-11-01] MEDS ORDERED: ATOR80TA PO (09:34)
[2021-11-01] MEDS ORDERED: LEVO150 PO (09:34)
[2021-11-01] MEDS ORDERED: PANT-31 PO (09:35)
== END 2021-11-01 12:35 | disposition home or self-care (01) | DRG 885 ==
LOC: B3A 19:10
PROVIDERS: ADMIT Psychiatry & Neurology Psychiatry; ATTEND Psychiatry & Neurology Psychiatry
DX: F25.9 Schizoaffective disorder, unspecified (principal); T42.4X2A Poisoning by benzodiazepines, intentional self-harm, initial encounter; R45.851 Suicidal ideations; Z20.822 Contact with and (suspected) exposure to COVID-19; E03.9 Hypothyroidism, unspecified; F15.10 Other stimulant abuse, uncomplicated; F32.A Depression, unspecified; F41.9 Anxiety disorder, unspecified; G47.00 Insomnia, unspecified; I10 Essential (primary) hypertension; T43.622A Poisoning by amphetamines, intentional self-harm, initial encounter; K21.9 Gastro-esophageal reflux disease without esophagitis; K59.00 Constipation, unspecified; Z91.19 Patient's noncompliance with other medical treatment and regimen; Y92.89 Other specified places as the place of occurrence of the external cause; Z79.899 Other long term (current) drug therapy
CPT/HCPCS: 80053; 80061; 81003; 83036; 83735; 84100; 84443; 85025; Q0162

== ENCOUNTER 2022-06-20 02:28 | Emergency (ER) | payer MEDICARE, MEDICAID ==
[~2022-06-20] VITALS: Ht 160 cm; Wt 79.0 kg
[~2022-06-20 02:28] MED LIST changes: +ATOR80TA PO; -LEVO125T95 PO; +LEVO150 PO; +PANT-31 PO; -ZOLP10TA8 PO
[2022-06-20 02:33] VITALS: BP 112/68
[2022-06-20 03:19] LABS: BASOPHILS % (AUTO) 0.7 % (0.0-2.0); EOSINOPHILS % (AUTO) 0.1 % (1.0-6.0); HEMATOCRIT 34.2 % (36-46); HEMOGLOBIN 11.3 g/dL (12.0-16.0); MEAN CORPUSCULAR HEMOGLOBIN 28.1 pg (26.0-34.0); MEAN CORPUSCULAR HGB CONC 33.1 G/dL (31.0-37.0); MEAN CORPUSCULAR VOLUME 85 fL (80-100); MONOCYTES # (AUTO) 0.7 K/uL (0.1-1.0); NEUTROPHILS # (AUTO) 3.7 K/uL (1.8-7.7); NEUTROPHILS % (AUTO) 50.2 % (40.0-70.0); PLATELET COUNT (AUTO) 272 K/uL (150-450); RED BLOOD CELL COUNT(AUTO) 4.04 MIL/uL (4.00-5.20); RED CELL DISTRIBUTION WIDTH 14.2 % (11.5-14.5)
[2022-06-20 03:25] LABS: ANION GAP 9 mmol/L (8-16); CALCIUM, TOTAL 8.2 mg/dL (8.8-10.5); CARBON DIOXIDE 26 mmol/L (22-29); CHLORIDE 106 mmol/L (98-107); CREATININE 0.79 mg/dL (0.60-1.30); GLUCOSE,RANDOM 110 mg/dL (70-110); POTASSIUM 3.6 mmol/L (3.5-5.1); SODIUM SERUM 141 mmol/L (136-145); UREA NITROGEN, BLOOD 13 mg/dL (7-18)
[2022-06-20 03:28] LABS: GLOMERULAR FILTR. RATE CALC > 60 mL/min (>60)
[2022-06-20 03:30] LABS: ALANINE AMINOTRANSFERASE 20 U/L (12-78); ALBUMIN 2.9 g/dL (3.4-5.0); ALKALINE PHOSPHATASE 67 U/L (46-116); ASPARTATE AMINOTRANSFERASE 12 U/L (15-37); BILIRUBIN,TOTAL 0.2 mg/dL (0.1-1.0); TOTAL PROTEIN, SERUM 5.9 g/dL (6.4-8.2)
[2022-06-20 03:31] LABS: B-TYPE NATRIURETIC PEPTIDE 52 pg/mL (0-100); PROTHROMBIN TIME 10.2 SEC (9.4-11.6)
[2022-06-21] MEDS ORDERED: LORA-1001 PO (04:24)
[2022-06-21] MEDS ORDERED: OLAN20TA35 PO (17:09)
[2022-06-22] MEDS ORDERED: LORA-1001 PO (13:59)
== END 2022-06-20 06:05 | disposition home or self-care (01) ==
LOC: EMS 02:29
DX: R00.1 Bradycardia, unspecified (principal); E03.9 Hypothyroidism, unspecified; F20.9 Schizophrenia, unspecified; F32.9 Major depressive disorder, single episode, unspecified; F41.9 Anxiety disorder, unspecified; F43.10 Post-traumatic stress disorder, unspecified; J44.9 Chronic obstructive pulmonary disease, unspecified; M19.90 Unspecified osteoarthritis, unspecified site; Z87.2 Personal history of diseases of the skin and subcutaneous tissue
CPT/HCPCS: 71045; 80053; 83880; 84484; 85025; 85610; 85730; 93005; 99285; 36415-L1; 36415-TC

== ENCOUNTER 2022-07-17 03:26 | Emergency (ER) | payer MEDICARE, MEDICAID ==
[~2022-07-17] VITALS: Ht 160 cm; Wt 73.0 kg
[~2022-07-17 03:26] MED LIST changes: +LORA-1001 PO; +OLAN20TA35 PO
[2022-07-17 04:56] VITALS: BP 128/89
[2022-07-17 06:09] LABS: BASOPHILS % (AUTO) 0.7 % (0.0-2.0); EOSINOPHILS % (AUTO) 0.2 % (1.0-6.0); HEMOGLOBIN 12.4 g/dL (12.0-16.0); LYMPHOCYTES % (AUTO) 25.6 % (22.0-44.0); MEAN CORPUSCULAR HEMOGLOBIN 27.7 pg (26.0-34.0); MEAN CORPUSCULAR HGB CONC 33.4 G/dL (31.0-37.0); MEAN CORPUSCULAR VOLUME 83 fL (80-100); MONOCYTES # (AUTO) 0.5 K/uL (0.1-1.0); MONOCYTES % (AUTO) 6.8 % (2.0-9.0); NEUTROPHILS # (AUTO) 5.1 K/uL (1.8-7.7); NEUTROPHILS % (AUTO) 66.7 % (40.0-70.0); PLATELET COUNT (AUTO) 340 K/uL (150-450); RED BLOOD CELL COUNT(AUTO) 4.46 MIL/uL (4.00-5.20); RED CELL DISTRIBUTION WIDTH 14.6 % (11.5-14.5)
[2022-07-17 06:17] LABS: ANION GAP 9 mmol/L (8-16); CALCIUM, TOTAL 9.3 mg/dL (8.8-10.5); CARBON DIOXIDE 26 mmol/L (22-29); CHLORIDE 108 mmol/L (98-107); CREATININE 0.63 mg/dL (0.60-1.30); GLOMERULAR FILTR. RATE CALC > 60 mL/min (>60); GLUCOSE,RANDOM 116 mg/dL (70-110); POTASSIUM 3.6 mmol/L (3.5-5.1); SODIUM SERUM 143 mmol/L (136-145); UREA NITROGEN, BLOOD 10 mg/dL (7-18)
[2022-07-17 06:22] LABS: ALANINE AMINOTRANSFERASE 27 U/L (12-78); ALBUMIN 3.3 g/dL (3.4-5.0); ALKALINE PHOSPHATASE 80 U/L (46-116); ASPARTATE AMINOTRANSFERASE 16 U/L (15-37); BILIRUBIN,TOTAL 0.2 mg/dL (0.1-1.0); TOTAL PROTEIN, SERUM 6.6 g/dL (6.4-8.2)
[2022-07-17] MEDS ORDERED: LORazepam 1 MG TABLET PO ONE (06:30)
[2022-07-17] MEDS ORDERED: ACETAMINOPHEN 500 MG TABLET PO ONE (06:45)
== END 2022-07-17 07:46 | disposition home or self-care (01) ==
LOC: EMS 03:27
DX: F41.9 Anxiety disorder, unspecified (principal); J45.909 Unspecified asthma, uncomplicated; F31.9 Bipolar disorder, unspecified; F20.9 Schizophrenia, unspecified; M19.90 Unspecified osteoarthritis, unspecified site; J44.9 Chronic obstructive pulmonary disease, unspecified; G89.29 Other chronic pain; L40.9 Psoriasis, unspecified; Z87.891 Personal history of nicotine dependence
CPT/HCPCS: 99283; 80053; 85025; 36415; G0480

== ENCOUNTER 2022-09-28 11:08 | Emergency (ER) | payer MEDICARE, MEDICAID ==
[~2022-09-28] VITALS: Ht 160 cm; Wt 74.0 kg
[2022-09-28] MEDS ORDERED: BUPR-317 PO (11:15)
[2022-09-28] MEDS ORDERED: TRAM-559 PO (11:15)
[2022-09-28] MEDS ORDERED: LURA120T PO (11:15)
[2022-09-28] MEDS ORDERED: LEVO125T95 PO (11:15)
[2022-09-28] MEDS ORDERED: ATOR20TA65 PO (11:15)
[2022-09-28 11:20] VITALS: BP 121/49
[2022-09-28 11:35] LABS: COVID AG,FIA SOURCE NASAL SWAB
[2022-09-28 11:54] LABS: INFLUENZA TYPE A NEGATIVE FOR TYPE A (NEGATIVE); INFLUENZA TYPE B NEGATIVE FOR TYPE B (NEGATIVE)
== END 2022-09-28 12:52 | disposition home or self-care (01) ==
LOC: EMS 11:10
DX: F41.9 Anxiety disorder, unspecified (principal); J45.909 Unspecified asthma, uncomplicated; F31.9 Bipolar disorder, unspecified; J44.9 Chronic obstructive pulmonary disease, unspecified; F20.9 Schizophrenia, unspecified; E03.9 Hypothyroidism, unspecified; G89.29 Other chronic pain; M54.9 Dorsalgia, unspecified; M19.90 Unspecified osteoarthritis, unspecified site; F43.10 Post-traumatic stress disorder, unspecified; Z87.891 Personal history of nicotine dependence; Z20.822 Contact with and (suspected) exposure to COVID-19
CPT/HCPCS: 99284; 71045; 87426; 87804; C9803

== ENCOUNTER 2022-10-25 23:48 | Emergency (ER) | payer MEDICARE, MEDICAID ==
[~2022-10-25] VITALS: Ht 167.6 cm; Wt 56.9 kg
[~2022-10-25 23:48] MED LIST changes: +ATOR20TA65 PO; -ATOR80TA PO; +BUPR-317 PO; +LEVO125T95 PO; -LEVO150 PO; +LURA120T PO; -LURA80TA2 PO; +TRAM-559 PO
[2022-10-26] MEDS ORDERED: DiphenhydrAMINE HCL 50 MG/ML VIAL IM ONE (00:30)
[2022-10-26] MEDS ORDERED: LORazepam 2 MG/ML VIAL IM ONE (00:30)
[2022-10-26] MEDS ORDERED: HALOPERIDOL LACTATE 5 MG/ML VIAL IM ONE (00:30)
[2022-10-26 06:07] VITALS: BP 119/72
== END 2022-10-26 06:17 | disposition home or self-care (01) ==
LOC: EMS 23:53
DX: G47.00 Insomnia, unspecified (principal); F15.10 Other stimulant abuse, uncomplicated; F41.9 Anxiety disorder, unspecified; J45.909 Unspecified asthma, uncomplicated; F31.9 Bipolar disorder, unspecified; J44.9 Chronic obstructive pulmonary disease, unspecified; F20.9 Schizophrenia, unspecified; M19.90 Unspecified osteoarthritis, unspecified site; E03.9 Hypothyroidism, unspecified; G89.29 Other chronic pain; M54.9 Dorsalgia, unspecified; L40.9 Psoriasis, unspecified; Z87.891 Personal history of nicotine dependence
CPT/HCPCS: 99285; 96372; J1200; J1630; J2060

== ENCOUNTER 2022-11-23 07:55 | Emergency (ER) | payer MEDICARE, MEDICAID ==
[~2022-11-23] VITALS: Ht 160 cm; Wt 75.0 kg
[2022-11-23 08:00] VITALS: BP 130/77
[2022-11-23] MEDS ORDERED: OLAN10 PO (08:06)
[2022-11-23] MEDS ORDERED: ALBUTEROL SULFATE HFA 90 MCG/PUFF 8 GM INHALER IH ONE (08:45)
[2022-11-23] MEDS ORDERED: PredniSONE 20 MG TABLET PO ONE (08:45)
[2022-11-23] MEDS ORDERED: GuaiFENesin/D-METHORPHAN [SUGAR-FREE] 200-20MG/10 ML SYRUP UDCUP PO ONE (08:45)
[2022-11-23 08:55] LABS: COVID AG,FIA SOURCE NASOPHARYNGEAL
[2022-11-23 08:58] LABS: BASOPHILS % (AUTO) 0.3 % (0.0-2.0); EOSINOPHILS % (AUTO) 0.5 % (1.0-6.0); HEMATOCRIT 36.4 % (36-46); HEMOGLOBIN 12.5 g/dL (12.0-16.0); LYMPHOCYTES # (AUTO) 3.2 K/uL (1.0-4.8); LYMPHOCYTES % (AUTO) 35.4 % (22.0-44.0); MEAN CORPUSCULAR HEMOGLOBIN 29.3 pg (26.0-34.0); MEAN CORPUSCULAR HGB CONC 34.4 G/dL (31.0-37.0); MEAN CORPUSCULAR VOLUME 85 fL (80-100); MONOCYTES # (AUTO) 0.5 K/uL (0.1-1.0); MONOCYTES % (AUTO) 5.6 % (2.0-9.0); NEUTROPHILS # (AUTO) 5.2 K/uL (1.8-7.7); NEUTROPHILS % (AUTO) 58.2 % (40.0-70.0); PLATELET COUNT (AUTO) 387 K/uL (150-450); RED BLOOD CELL COUNT(AUTO) 4.28 MIL/uL (4.00-5.20); RED CELL DISTRIBUTION WIDTH 15.2 % (11.5-14.5)
[2022-11-23 09:08] LABS: ANION GAP 9 mmol/L (8-16); CARBON DIOXIDE 26 mmol/L (22-29); CHLORIDE 106 mmol/L (98-107); CREATININE 0.65 mg/dL (0.60-1.30); GLOMERULAR FILTR. RATE CALC > 60 mL/min (>60); GLUCOSE,RANDOM 101 mg/dL (70-110); SODIUM SERUM 141 mmol/L (136-145); UREA NITROGEN, BLOOD 10 mg/dL (7-18)
[2022-11-23 09:13] LABS: ALANINE AMINOTRANSFERASE 20 U/L (12-78); ALBUMIN 3.7 g/dL (3.4-5.0); ALKALINE PHOSPHATASE 86 U/L (46-116); ASPARTATE AMINOTRANSFERASE 16 U/L (15-37); BILIRUBIN,TOTAL 0.2 mg/dL (0.1-1.0)
[2022-11-23 09:16] LABS: AMPHET/METH SCREEN,URINE NEGATIVE (NEGATIVE); BARBITURATE SCREEN, URINE NEGATIVE (NEGATIVE); BENZODIAZEPINES SCREEN,URINE NEGATIVE (NEGATIVE); CANNABINOID SCREEN,URINE NEGATIVE (NEGATIVE); COCAINE SCREEN,URINE NEGATIVE (NEGATIVE); METHADONE SCREEN, URINE NEGATIVE (NEGATIVE); OPIATE SCREEN,URINE NEGATIVE (NEGATIVE); PHENCYCLIDINE SCREEN,URINE NEGATIVE (NEGATIVE)
[2022-11-23 09:27] LABS: INFLUENZA TYPE A NEGATIVE FOR TYPE A (NEGATIVE); INFLUENZA TYPE B NEGATIVE FOR TYPE B (NEGATIVE)
[2022-11-23] MEDS ORDERED: BENZ-227 PO (09:52)
[2022-11-23] MEDS ORDERED: GUAIFDM PO (09:52)
[2022-11-23] MEDS ORDERED: ACET-66 PO (09:52)
== END 2022-11-23 10:39 | disposition home or self-care (01) ==
LOC: EMS 08:08
DX: R06.00 Dyspnea, unspecified (principal); J44.1 Chronic obstructive pulmonary disease with (acute) exacerbation; J20.9 Acute bronchitis, unspecified; J44.0 Chronic obstructive pulmonary disease with (acute) lower respiratory infection; F31.9 Bipolar disorder, unspecified; F25.9 Schizoaffective disorder, unspecified; F41.9 Anxiety disorder, unspecified; M19.90 Unspecified osteoarthritis, unspecified site; E03.9 Hypothyroidism, unspecified; G89.29 Other chronic pain; M54.9 Dorsalgia, unspecified; L40.9 Psoriasis, unspecified; Z87.891 Personal history of nicotine dependence; Z20.822 Contact with and (suspected) exposure to COVID-19
CPT/HCPCS: 99285; 71045; 87426; 80053; 84484; 85025; 87804; 36415; 94640; 93005; 80307 ×2; J7512; J3535

== ENCOUNTER 2022-12-02 00:25 | Emergency (ER) | payer MEDICARE, MEDICAID ==
[~2022-12-02] VITALS: Ht 165.1 cm; Wt 70.5 kg
[~2022-12-02 00:25] MED LIST changes: +ACET-66 PO; -ATOR20TA65 PO; +BENZ-227 PO; -BUPR-317 PO; +GUAIFDM PO; -LORA-1001 PO; +OLAN10 PO; -OLAN20TA35 PO; -PANT-31 PO; -TRAM-559 PO; -TRAZ150T80 PO
[2022-12-02 01:28] LABS: COVID AG,FIA SOURCE NASAL SWAB
[2022-12-02 01:31] VITALS: BP 115/77
[2022-12-02 01:50] LABS: INFLUENZA TYPE A NEGATIVE FOR TYPE A (NEGATIVE); INFLUENZA TYPE B NEGATIVE FOR TYPE B (NEGATIVE)
== END 2022-12-02 02:50 | disposition home or self-care (01) ==
LOC: EMS 00:26
DX: J20.9 Acute bronchitis, unspecified (principal); F41.9 Anxiety disorder, unspecified; M19.90 Unspecified osteoarthritis, unspecified site; J45.909 Unspecified asthma, uncomplicated; F31.9 Bipolar disorder, unspecified; J44.9 Chronic obstructive pulmonary disease, unspecified; E03.9 Hypothyroidism, unspecified; F20.9 Schizophrenia, unspecified; G89.29 Other chronic pain; M54.9 Dorsalgia, unspecified; L40.9 Psoriasis, unspecified; F15.90 Other stimulant use, unspecified, uncomplicated; Z87.891 Personal history of nicotine dependence; Z20.822 Contact with and (suspected) exposure to COVID-19
CPT/HCPCS: 71045; 87804; 99284

== ENCOUNTER 2022-12-14 08:15 | Inpatient (IN) | payer MEDICARE, MEDICAID ==
[~2022-12-14] VITALS: Ht 160 cm; Wt 68.5 kg
[2022-12-14 11:46] LABS: BASOPHILS % (AUTO) 0.6 % (0.0-2.0); EOSINOPHILS % (AUTO) 0.8 % (1.0-6.0); HEMATOCRIT 37.9 % (36-46); HEMOGLOBIN 12.8 g/dL (12.0-16.0); LYMPHOCYTES % (AUTO) 30.4 % (22.0-44.0); MEAN CORPUSCULAR HEMOGLOBIN 29.4 pg (26.0-34.0); MEAN CORPUSCULAR HGB CONC 33.8 G/dL (31.0-37.0); MEAN CORPUSCULAR VOLUME 87 fL (80-100); MONOCYTES # (AUTO) 0.5 K/uL (0.1-1.0); MONOCYTES % (AUTO) 5.2 % (2.0-9.0); NEUTROPHILS # (AUTO) 6.2 K/uL (1.8-7.7); PLATELET COUNT (AUTO) 412 K/uL (150-450); RED BLOOD CELL COUNT(AUTO) 4.36 MIL/uL (4.00-5.20); RED CELL DISTRIBUTION WIDTH 14.4 % (11.5-14.5)
[2022-12-14 11:51] LABS: ANION GAP 10 mmol/L (8-16); CALCIUM, TOTAL 9.4 mg/dL (8.8-10.5); CARBON DIOXIDE 27 mmol/L (22-29); CHLORIDE 106 mmol/L (98-107); CREATININE 0.75 mg/dL (0.60-1.30); GLOMERULAR FILTR. RATE CALC > 60 mL/min (>60); GLUCOSE,RANDOM 108 mg/dL (70-110); POTASSIUM 3.2 mmol/L (3.5-5.1); SODIUM SERUM 143 mmol/L (136-145); UREA NITROGEN, BLOOD 17 mg/dL (7-18)
[2022-12-14 11:57] LABS: ALANINE AMINOTRANSFERASE 23 U/L (12-78); ALBUMIN 4.2 g/dL (3.4-5.0); ALKALINE PHOSPHATASE 95 U/L (46-116); ASPARTATE AMINOTRANSFERASE 18 U/L (15-37); BILIRUBIN,TOTAL 0.5 mg/dL (0.1-1.0); TOTAL PROTEIN, SERUM 7.7 g/dL (6.4-8.2)
[2022-12-14 12:00] LABS: AMPHET/METH SCREEN,URINE POSITIVE (NEGATIVE); BARBITURATE SCREEN, URINE NEGATIVE (NEGATIVE); BENZODIAZEPINES SCREEN,URINE NEGATIVE (NEGATIVE); CANNABINOID SCREEN,URINE NEGATIVE (NEGATIVE); COCAINE SCREEN,URINE NEGATIVE (NEGATIVE); METHADONE SCREEN, URINE NEGATIVE (NEGATIVE); OPIATE SCREEN,URINE NEGATIVE (NEGATIVE); PHENCYCLIDINE SCREEN,URINE NEGATIVE (NEGATIVE)
[2022-12-14 13:12] LABS: COVID AG,FIA SOURCE NASAL SWAB
[2022-12-14] MEDS: HALOPERIDOL 5 MG TABLET PO PRN (16:51)
[2022-12-14] MEDS: LORazepam 2 MG TABLET PO PRN (16:51)
[2022-12-14] MEDS ORDERED: NICOTINE 14 MG/24 HOUR PATCH TD PRN (18:45)
[2022-12-14] MEDS: BACITRACIN 28 GM OINTMENT TP SCH (20:03)
[2022-12-14 20:26] VITALS: BP 125/88
[2022-12-14] MEDS ORDERED: POTASSIUM CHLORIDE 20 MEQ ER TABLET PO ONE (20:30)
[2022-12-14] MEDS: ZOLPIDEM TARTRATE 10 MG TABLET PO PRN (20:35)
[2022-12-15] MEDS: LEVOTHYROXINE SODIUM 125 MCG TABLET PO SCH (06:18)
[2022-12-15] MEDS: DENTURE ADHESIVE 68 GM CREAM DT PRN (06:37)
[2022-12-15] MEDS ORDERED: LOPERAMIDE HCL 2 MG CAPSULE PO PRN (07:00)
[2022-12-15] MEDS ORDERED: ALBUTEROL SULFATE HFA 90 MCG/PUFF 8 GM INHALER IH PRN (07:00)
[2022-12-15] MEDS ORDERED: MAG HYDROX/AL HYDROX/SIMETH ES 30 ML SUSPENSION UDCUP PO PRN (07:00)
[2022-12-15] MEDS ORDERED: MAGNESIUM HYDROXIDE SUSPENSION 30 ML UDCUP PO PRN (07:00)
[2022-12-15] MEDS ORDERED: CloNIDine HCL 0.1 MG TABLET PO PRN (07:00)
[2022-12-15] MEDS ORDERED: PETROLATUM,WHITE 28 GM JELLY TP PRN (07:00)
[2022-12-15] MEDS ORDERED: GuaiFENesin/D-METHORPHAN [SUGAR-FREE] 200-20MG/10 ML SYRUP UDCUP PO PRN (07:00)
[2022-12-15] MEDS ORDERED: DOCUSATE SODIUM 100 MG CAPSULE PO PRN (07:00)
[2022-12-15] MEDS ORDERED: ONDANSETRON HCL 4 MG TABLET PO PRN (07:00)
[2022-12-15] MEDS ORDERED: ACETAMINOPHEN 325 MG TABLET PO PRN (07:00)
[2022-12-15] MEDS: LORazepam 2 MG TABLET PO PRN ×2 (08:22→18:30)
[2022-12-15] MEDS: HALOPERIDOL 5 MG TABLET PO PRN ×2 (08:22→18:30)
[2022-12-15 08:53] VITALS: BP 133/74
[2022-12-15] MEDS: BACITRACIN 28 GM OINTMENT TP SCH ×2 (09:09→17:18)
[2022-12-15] MEDS: NICOTINE 14 MG/24 HOUR PATCH TD PRN (09:30)
[2022-12-15] MEDS: LURASIDONE HCL 60 MG TABLET PO SCH (17:17)
[2022-12-15 20:35] VITALS: BP 121/72
[2022-12-15] MEDS: OLANZapine 7.5 MG TABLET PO SCH (20:54)
[2022-12-15] MEDS: ZOLPIDEM TARTRATE 10 MG TABLET PO PRN (23:17)
[2022-12-16 00:53] VITALS: BP 119/84
[2022-12-16] MEDS: LORazepam 2 MG TABLET PO PRN ×3 (00:53→23:57)
[2022-12-16] MEDS: HALOPERIDOL 5 MG TABLET PO PRN ×3 (02:13→23:57)
[2022-12-16] MEDS: LEVOTHYROXINE SODIUM 125 MCG TABLET PO SCH (06:16)
[2022-12-16 08:43] VITALS: BP 111/77
[2022-12-16] MEDS: BACITRACIN 28 GM OINTMENT TP SCH ×2 (09:22→16:07)
[2022-12-16] MEDS: NICOTINE 14 MG/24 HOUR PATCH TD PRN (16:04)
[2022-12-16] MEDS: LURASIDONE HCL 60 MG TABLET PO SCH (16:05)
[2022-12-16 18:06] LABS: HEPATITIS C AB (EIA) Non Reactive (Non Reactive)
[2022-12-16] MEDS: OLANZapine 7.5 MG TABLET PO SCH (20:37)
[2022-12-16 21:09] VITALS: BP 115/78
[2022-12-16] MEDS: ZOLPIDEM TARTRATE 10 MG TABLET PO PRN (21:12)
[2022-12-17 00:09] VITALS: BP 124/77
[2022-12-17] MEDS: IBUPROFEN 400 MG TABLET PO PRN (00:39)
[2022-12-17] MEDS: LEVOTHYROXINE SODIUM 125 MCG TABLET PO SCH (06:44)
[2022-12-17 08:55] VITALS: BP 124/84
[2022-12-17] MEDS: BACITRACIN 28 GM OINTMENT TP SCH ×2 (09:18→17:16)
[2022-12-17] MEDS: HALOPERIDOL 5 MG TABLET PO PRN (11:58)
[2022-12-17] MEDS: LORazepam 2 MG TABLET PO PRN ×2 (11:58→23:52)
[2022-12-17] MEDS: LURASIDONE HCL 60 MG TABLET PO SCH (17:12)
[2022-12-17 20:29] VITALS: BP 100/66
[2022-12-17] MEDS: OLANZapine 7.5 MG TABLET PO SCH (20:30)
[2022-12-17] MEDS: ZOLPIDEM TARTRATE 10 MG TABLET PO PRN (20:51)
[2022-12-18] MEDS: HALOPERIDOL 5 MG TABLET PO PRN ×3 (00:53→15:16)
[2022-12-18] MEDS: LEVOTHYROXINE SODIUM 125 MCG TABLET PO SCH (06:24)
[2022-12-18 08:52] VITALS: BP 119/66
[2022-12-18] MEDS: LORazepam 2 MG TABLET PO PRN ×2 (09:20→22:49)
[2022-12-18] MEDS: BACITRACIN 28 GM OINTMENT TP SCH ×2 (09:20→17:06)
[2022-12-18] MEDS: LURASIDONE HCL 60 MG TABLET PO SCH (17:01)
[2022-12-18] MEDS: MUPIROCIN CALCIUM 2% 22 GM OINTMENT NASAL SCH (19:01)
[2022-12-18 20:32] VITALS: BP 102/73
[2022-12-18] MEDS: OLANZapine 7.5 MG TABLET PO SCH (20:35)
[2022-12-18] MEDS: ZOLPIDEM TARTRATE 10 MG TABLET PO PRN (20:57)
[2022-12-19] VITALS: BP 117/81
[2022-12-19] MEDS: HALOPERIDOL 5 MG TABLET PO PRN ×4 (00:06→21:11)
[2022-12-19 04:31] LABS: GLUCOMETER DEV NAME(LOC) POC.BV
[2022-12-19] MEDS: LEVOTHYROXINE SODIUM 125 MCG TABLET PO SCH (06:57)
[2022-12-19] MEDS: BACITRACIN 28 GM OINTMENT TP SCH ×2 (08:35→16:36)
[2022-12-19] MEDS: MUPIROCIN CALCIUM 2% 22 GM OINTMENT NASAL SCH ×2 (08:35→16:35)
[2022-12-19 08:56] VITALS: BP 118/88
[2022-12-19] MEDS: LORazepam 2 MG TABLET PO PRN ×3 (10:02→21:11)
[2022-12-19] MEDS: NICOTINE 14 MG/24 HOUR PATCH TD PRN (13:59)
[2022-12-19] MEDS: LURASIDONE HCL 60 MG TABLET PO SCH (16:57)
[2022-12-19 20:34] VITALS: BP 128/87
[2022-12-19] MEDS: OLANZapine 7.5 MG TABLET PO SCH (21:09)
[2022-12-19] MEDS: ZOLPIDEM TARTRATE 10 MG TABLET PO PRN (21:10)
[2022-12-20] MEDS: LORazepam 2 MG TABLET PO PRN ×2 (02:40→16:27)
[2022-12-20] MEDS: HALOPERIDOL 5 MG TABLET PO PRN ×2 (02:41→23:01)
[2022-12-20] MEDS: LEVOTHYROXINE SODIUM 125 MCG TABLET PO SCH (06:19)
[2022-12-20 08:42] VITALS: BP 100/51
[2022-12-20] MEDS: MUPIROCIN CALCIUM 2% 22 GM OINTMENT NASAL SCH ×2 (08:59→16:29)
[2022-12-20] MEDS: BACITRACIN 28 GM OINTMENT TP SCH ×2 (08:59→16:29)
[2022-12-20 12:17] VITALS: BP 114/63
[2022-12-20] MEDS: LURASIDONE HCL 60 MG TABLET PO SCH (17:02)
[2022-12-20] MEDS: OLANZapine 7.5 MG TABLET PO SCH (20:26)
[2022-12-20 20:35] VITALS: BP 102/85
[2022-12-21] MEDS: LEVOTHYROXINE SODIUM 125 MCG TABLET PO SCH (06:34)
[2022-12-21 08:38] VITALS: BP 106/65
[2022-12-21] MEDS: MUPIROCIN CALCIUM 2% 22 GM OINTMENT NASAL SCH ×2 (09:05→17:01)
[2022-12-21] MEDS: BACITRACIN 28 GM OINTMENT TP SCH ×2 (09:06→17:01)
[2022-12-21] MEDS: HALOPERIDOL 5 MG TABLET PO PRN ×2 (09:48→23:29)
[2022-12-21] MEDS: LORazepam 2 MG TABLET PO PRN ×2 (09:48→20:08)
[2022-12-21] MEDS: LURASIDONE HCL 60 MG TABLET PO SCH (17:00)
[2022-12-21] MEDS ORDERED: MUPIROCIN CALCIUM 2% 22 GM OINTMENT NASAL SCH ×2 (18:00)
[2022-12-21] MEDS: OLANZapine 7.5 MG TABLET PO SCH (20:08)
[2022-12-21 20:50] VITALS: BP 105/63
[2022-12-21] MEDS: ZOLPIDEM TARTRATE 10 MG TABLET PO PRN (21:37)
[2022-12-22] MEDS: LORazepam 2 MG TABLET PO PRN ×4 (01:31→23:49)
[2022-12-22] MEDS: LEVOTHYROXINE SODIUM 125 MCG TABLET PO SCH (06:39)
[2022-12-22 09:02] VITALS: BP 122/70
[2022-12-22] MEDS: BACITRACIN 28 GM OINTMENT TP SCH ×2 (09:38→17:15)
[2022-12-22] MEDS: MUPIROCIN CALCIUM 2% 22 GM OINTMENT NASAL SCH ×2 (09:39→17:15)
[2022-12-22] MEDS: HALOPERIDOL 5 MG TABLET PO PRN ×3 (09:44→23:49)
[2022-12-22] MEDS: NICOTINE 14 MG/24 HOUR PATCH TD PRN (10:07)
[2022-12-22] MEDS: LURASIDONE HCL 60 MG TABLET PO SCH (17:26)
[2022-12-22] MEDS: IBUPROFEN 400 MG TABLET PO PRN (17:52)
[2022-12-22 20:25] VITALS: BP 126/61
[2022-12-22] MEDS: OLANZapine 7.5 MG TABLET PO SCH (20:32)
[2022-12-22] MEDS: ZOLPIDEM TARTRATE 10 MG TABLET PO PRN (20:58)
[2022-12-23] MEDS: LEVOTHYROXINE SODIUM 125 MCG TABLET PO SCH (06:29)
[2022-12-23] MEDS: BACITRACIN 28 GM OINTMENT TP SCH ×2 (09:18→17:08)
[2022-12-23] MEDS: MUPIROCIN CALCIUM 2% 22 GM OINTMENT NASAL SCH ×2 (09:18→17:08)
[2022-12-23 09:20] VITALS: BP 118/83
[2022-12-23] MEDS: DENTURE ADHESIVE 68 GM CREAM DT PRN (11:38)
[2022-12-23] MEDS: LORazepam 2 MG TABLET PO PRN (13:57)
[2022-12-23] MEDS: HALOPERIDOL 5 MG TABLET PO PRN (13:57)
[2022-12-23] MEDS: LURASIDONE HCL 60 MG TABLET PO SCH (17:07)
[2022-12-23 20:52] VITALS: BP 119/89
[2022-12-23] MEDS: OLANZapine 7.5 MG TABLET PO SCH (21:05)
[2022-12-24] MEDS: LEVOTHYROXINE SODIUM 125 MCG TABLET PO SCH (06:30)
[2022-12-24 08:39] VITALS: BP 106/68
[2022-12-24] MEDS: BACITRACIN 28 GM OINTMENT TP SCH ×2 (09:11→16:48)
[2022-12-24] MEDS: LURASIDONE HCL 60 MG TABLET PO SCH (16:48)
[2022-12-24] MEDS: OLANZapine 7.5 MG TABLET PO SCH (20:31)
[2022-12-24 20:42] VITALS: BP 127/73
[2022-12-24] MEDS: ZOLPIDEM TARTRATE 10 MG TABLET PO PRN (22:41)
[2022-12-25 00:54] VITALS: BP 135/62
[2022-12-25] MEDS: LORazepam 2 MG TABLET PO PRN (02:04)
[2022-12-25] MEDS: HALOPERIDOL 5 MG TABLET PO PRN (02:05)
[2022-12-25] MEDS: LEVOTHYROXINE SODIUM 125 MCG TABLET PO SCH (06:17)
[2022-12-25 08:36] VITALS: BP 110/61
[2022-12-25] MEDS ORDERED: OLAN7.5T22 PO ×2 (09:00→09:55)
[2022-12-25] MEDS: BACITRACIN 28 GM OINTMENT TP SCH (09:23)
[2022-12-25] MEDS ORDERED: LURA60TA4 PO (09:55)
[2022-12-25] MEDS: DENTURE ADHESIVE 68 GM CREAM DT PRN (10:01)
== END 2022-12-25 14:00 | disposition home or self-care (01) | DRG 885 ==
LOC: EMS 08:17 → B2S 15:15
PROVIDERS: ADMIT Psychiatry & Neurology Child & Adolescent Psychiatry; ATTEND Psychiatry & Neurology Child & Adolescent Psychiatry
DX: F25.1 Schizoaffective disorder, depressive type (principal); R45.851 Suicidal ideations; F31.9 Bipolar disorder, unspecified; F43.10 Post-traumatic stress disorder, unspecified; G47.00 Insomnia, unspecified; E03.9 Hypothyroidism, unspecified; E87.6 Hypokalemia; F41.9 Anxiety disorder, unspecified; G89.29 Other chronic pain; M13.88 Other specified arthritis, other site; Z20.822 Contact with and (suspected) exposure to COVID-19; F15.10 Other stimulant abuse, uncomplicated; J44.9 Chronic obstructive pulmonary disease, unspecified; Z82.5 Family history of asthma and other chronic lower respiratory diseases; Z82.49 Family history of ischemic heart disease and other diseases of the circulatory system; Z83.3 Family history of diabetes mellitus; Z87.891 Personal history of nicotine dependence
CPT/HCPCS: 80053; 80307; 84132; 85025; 86803; 87081; 87340; 99285; G0480; J3535; Q9967

== ENCOUNTER 2023-05-03 04:06 | Emergency (ER) | payer OTHER ==
[~2023-05-03] VITALS: Ht 165.1 cm; Wt 70.0 kg
[~2023-05-03 04:06] MED LIST changes: -ACET-66 PO; -BENZ-227 PO; -GUAIFDM PO; +LURA60TA4 PO; -OLAN10 PO; +OLAN7.5T22 PO
[2023-05-03 04:17] VITALS: TEMP 98.9
[2023-05-03] MEDS ORDERED: LORazepam 1 MG TABLET PO ONE (04:30)
[2023-05-03 04:35] LABS: BASOPHILS % (AUTO) 0.1 % (0.0-2.0); EOSINOPHILS % (AUTO) 0 % (1.0-6.0); HEMATOCRIT 32.5 % (36-46); HEMOGLOBIN 10.9 g/dL (12.0-16.0); LYMPHOCYTES # (AUTO) 2.3 K/uL (1.0-4.8); LYMPHOCYTES % (AUTO) 38.1 % (22.0-44.0); MEAN CORPUSCULAR HEMOGLOBIN 27.6 pg (26.0-34.0); MEAN CORPUSCULAR HGB CONC 33.5 G/dL (31.0-37.0); MEAN CORPUSCULAR VOLUME 83 fL (80-100); MONOCYTES # (AUTO) 0.5 K/uL (0.1-1.0); MONOCYTES % (AUTO) 8.1 % (2.0-9.0); NEUTROPHILS # (AUTO) 3.2 K/uL (1.8-7.7); NEUTROPHILS % (AUTO) 53.7 % (40.0-70.0); PLATELET COUNT (AUTO) 235 K/uL (150-450); RED BLOOD CELL COUNT(AUTO) 3.94 MIL/uL (4.00-5.20); RED CELL DISTRIBUTION WIDTH 14.6 % (11.5-14.5)
[2023-05-03 04:48] LABS: ANION GAP 10 mmol/L (8-16); CALCIUM, TOTAL 8.7 mg/dL (8.8-10.5); CARBON DIOXIDE 24 mmol/L (22-29); CHLORIDE 108 mmol/L (98-107); CREATININE 0.59 mg/dL (0.60-1.30); GLOMERULAR FILTR. RATE CALC > 60 mL/min (>60); GLUCOSE,RANDOM 114 mg/dL (70-110); POTASSIUM 3.8 mmol/L (3.5-5.1); SODIUM SERUM 141 mmol/L (136-145)
[2023-05-03 04:53] LABS: ALANINE AMINOTRANSFERASE 13 U/L (12-78); ALBUMIN 3.2 g/dL (3.4-5.0); ALKALINE PHOSPHATASE 88 U/L (46-116); ASPARTATE AMINOTRANSFERASE 11 U/L (15-37); BILIRUBIN,TOTAL 0.4 mg/dL (0.1-1.0); TOTAL PROTEIN, SERUM 6.4 g/dL (6.4-8.2)
[2023-05-03] MEDS ORDERED: MELA3TAB89 PO (05:05)
[2023-05-03 06:45] VITALS: BP 152/91; PULSE 70; RESP 18
== END 2023-05-03 06:51 | disposition home or self-care (01) ==
LOC: EMS 04:08
DX: F41.9 Anxiety disorder, unspecified (principal); G47.00 Insomnia, unspecified; M19.90 Unspecified osteoarthritis, unspecified site; F31.9 Bipolar disorder, unspecified; J44.9 Chronic obstructive pulmonary disease, unspecified; E03.9 Hypothyroidism, unspecified; F20.9 Schizophrenia, unspecified; G89.29 Other chronic pain; M54.9 Dorsalgia, unspecified; L40.9 Psoriasis, unspecified; F15.90 Other stimulant use, unspecified, uncomplicated; Z87.891 Personal history of nicotine dependence
CPT/HCPCS: 99283; 80053; 84702; 84703; 85025; 36415; G0480

== ENCOUNTER 2023-05-08 15:05 | Emergency (ER) | payer OTHER ==
[~2023-05-08] VITALS: Ht 160 cm; Wt 71.4 kg
[~2023-05-08 15:05] MED LIST changes: +MELA3TAB89 PO
[2023-05-08 15:13] VITALS: TEMP 97.7
[2023-05-08] MEDS ORDERED: LORazepam 1 MG TABLET PO ONE (15:30)
[2023-05-08 15:37] LABS: BASOPHILS % (AUTO) 0.2 % (0.0-2.0); EOSINOPHILS % (AUTO) 0 % (1.0-6.0); HEMATOCRIT 31.5 % (36-46); HEMOGLOBIN 10.8 g/dL (12.0-16.0); LYMPHOCYTES # (AUTO) 2.6 K/uL (1.0-4.8); LYMPHOCYTES % (AUTO) 30.5 % (22.0-44.0); MEAN CORPUSCULAR HEMOGLOBIN 28.3 pg (26.0-34.0); MEAN CORPUSCULAR HGB CONC 34.3 G/dL (31.0-37.0); MEAN CORPUSCULAR VOLUME 83 fL (80-100); MONOCYTES # (AUTO) 0.6 K/uL (0.1-1.0); MONOCYTES % (AUTO) 6.6 % (2.0-9.0); NEUTROPHILS # (AUTO) 5.3 K/uL (1.8-7.7); NEUTROPHILS % (AUTO) 62.7 % (40.0-70.0); PLATELET COUNT (AUTO) 353 K/uL (150-450); RED BLOOD CELL COUNT(AUTO) 3.81 MIL/uL (4.00-5.20); RED CELL DISTRIBUTION WIDTH 14.6 % (11.5-14.5)
[2023-05-08 15:54] LABS: ALBUMIN 3.3 g/dL (3.4-5.0); ALKALINE PHOSPHATASE 94 U/L (46-116); ANION GAP 12 mmol/L (8-16); ASPARTATE AMINOTRANSFERASE 13 U/L (15-37); BILIRUBIN,TOTAL 0.2 mg/dL (0.1-1.0); CARBON DIOXIDE 24 mmol/L (22-29); CHLORIDE 107 mmol/L (98-107); CREATINE KINASE, TOTAL ONLY 35 U/L (26-192); CREATININE 0.65 mg/dL (0.60-1.30); GLOMERULAR FILTR. RATE CALC > 60 mL/min (>60); GLUCOSE,RANDOM 107 mg/dL (70-110); POTASSIUM 3.5 mmol/L (3.5-5.1); SODIUM SERUM 143 mmol/L (136-145); TOTAL PROTEIN, SERUM 6.5 g/dL (6.4-8.2)
[2023-05-08 16:00] LABS: B-TYPE NATRIURETIC PEPTIDE 68 pg/mL (0-100)
[2023-05-08] MEDS ORDERED: OLANZapine 5 MG TABLET PO ONE (16:00)
[2023-05-08 16:02] LABS: ALANINE AMINOTRANSFERASE 16 U/L (12-78); CALCIUM, TOTAL 8.8 mg/dL (8.8-10.5)
[2023-05-08 17:09] LABS: AMPHET/METH SCREEN,URINE NEGATIVE (NEGATIVE); BARBITURATE SCREEN, URINE NEGATIVE (NEGATIVE); BENZODIAZEPINES SCREEN,URINE NEGATIVE (NEGATIVE); CANNABINOID SCREEN,URINE NEGATIVE (NEGATIVE); COCAINE SCREEN,URINE NEGATIVE (NEGATIVE); METHADONE SCREEN, URINE NEGATIVE (NEGATIVE); OPIATE SCREEN,URINE NEGATIVE (NEGATIVE); PHENCYCLIDINE SCREEN,URINE NEGATIVE (NEGATIVE)
[2023-05-08 18:00] VITALS: BP 127/64; PULSE 70; RESP 16
== END 2023-05-08 18:15 | disposition home or self-care (01) ==
LOC: EMS 15:44
DX: F41.9 Anxiety disorder, unspecified (principal); J44.9 Chronic obstructive pulmonary disease, unspecified; F32.A Depression, unspecified; E03.9 Hypothyroidism, unspecified; F20.9 Schizophrenia, unspecified; F15.90 Other stimulant use, unspecified, uncomplicated; Z87.891 Personal history of nicotine dependence; Z79.899 Other long term (current) drug therapy
CPT/HCPCS: 99285; 71045; 80053; 82550; 83880; 84484; 85025; 36415; 93005; 80307 ×2; G0480

== ENCOUNTER 2023-05-17 15:36 | Emergency (ER) | payer OTHER ==
[~2023-05-17] VITALS: Ht 160 cm; Wt 70.5 kg
[2023-05-17 15:51] VITALS: TEMP 98
[2023-05-17] MEDS ORDERED: SODIUM CHLORIDE 0.9% 1,000 ML IV ONE (16:15)
[2023-05-17] MEDS ORDERED: METOCLOPRAMIDE HCL 5 MG/ML 2 ML VIAL IVP ONE (16:15)
[2023-05-17 16:42] LABS: EOSINOPHILS % (AUTO) 0 % (1.0-6.0); HEMATOCRIT 34.9 % (36-46); HEMOGLOBIN 11.4 g/dL (12.0-16.0); LYMPHOCYTES # (AUTO) 2.4 K/uL (1.0-4.8); LYMPHOCYTES % (AUTO) 24.6 % (22.0-44.0); MEAN CORPUSCULAR HGB CONC 32.8 G/dL (31.0-37.0); MEAN CORPUSCULAR VOLUME 83 fL (80-100); MONOCYTES # (AUTO) 0.6 K/uL (0.1-1.0); MONOCYTES % (AUTO) 6.7 % (2.0-9.0); NEUTROPHILS # (AUTO) 6.6 K/uL (1.8-7.7); NEUTROPHILS % (AUTO) 68.7 % (40.0-70.0); PLATELET COUNT (AUTO) 402 K/uL (150-450); RED BLOOD CELL COUNT(AUTO) 4.22 MIL/uL (4.00-5.20); RED CELL DISTRIBUTION WIDTH 15.2 % (11.5-14.5)
[2023-05-17 16:45] LABS: ANION GAP 9 mmol/L (8-16); CALCIUM, TOTAL 9.1 mg/dL (8.8-10.5); CARBON DIOXIDE 25 mmol/L (22-29); CHLORIDE 107 mmol/L (98-107); CREATININE 0.73 mg/dL (0.60-1.30); GLOMERULAR FILTR. RATE CALC > 60 mL/min (>60); GLUCOSE,RANDOM 114 mg/dL (70-110); POTASSIUM 3.1 mmol/L (3.5-5.1); SODIUM SERUM 141 mmol/L (136-145)
[2023-05-17 16:52] LABS: ALANINE AMINOTRANSFERASE 15 U/L (12-78); ALBUMIN 3.7 g/dL (3.4-5.0); ALKALINE PHOSPHATASE 103 U/L (46-116); ASPARTATE AMINOTRANSFERASE 13 U/L (15-37); BILIRUBIN,TOTAL 0.3 mg/dL (0.1-1.0); LIPASE 18 U/L (16-77); TOTAL PROTEIN, SERUM 7.3 g/dL (6.4-8.2)
[2023-05-17 17:09] LABS: APPEARANCE,URINE CLEAR (CLEAR); BILIRUBIN,URINE NEGATIVE (NEGATIVE); GLUCOSE, URINE (UA) NEGATIVE (NEGATIVE); KETONES,URINE NEGATIVE (NEGATIVE); LEUKOCYTE ESTERASE ,URINE SMALL (NEGATIVE); NITRATE,URINE NEGATIVE (NEGATIVE); OCCULT BLOOD,URINE NEGATIVE (NEGATIVE); PH,URINE 5.5 (5.0-8.0); PROTEIN,URINE 30-70 mg/dL (NEGATIVE)
[2023-05-17 17:10] LABS: SPECIFIC GRAVITIY, URINE > 1.030 (1.003-1.030)
[2023-05-17 17:17] LABS: BACTERIA,URINE Few /HPF (None Seen)
[2023-05-17 17:18] LABS: CALCIUM OXALATE CRYSTALS,UR Many /LPF (None Seen); RBC,URINE 0-2 /HPF (0-2)
[2023-05-17 21:01] VITALS: BP 120/80; PULSE 72; RESP 16
[2023-05-17] MEDS ORDERED: PROPOFOL 1000 MG/ISO-OSM 0 ML ONE (21:33)
== END 2023-05-18 00:08 | disposition home or self-care (01) ==
LOC: EMS 15:38
DX: R19.7 Diarrhea, unspecified (principal); F41.9 Anxiety disorder, unspecified; M19.90 Unspecified osteoarthritis, unspecified site; J45.909 Unspecified asthma, uncomplicated; F31.9 Bipolar disorder, unspecified; J44.9 Chronic obstructive pulmonary disease, unspecified; E03.9 Hypothyroidism, unspecified; F20.9 Schizophrenia, unspecified; G89.29 Other chronic pain; M54.9 Dorsalgia, unspecified; Z87.891 Personal history of nicotine dependence; F15.90 Other stimulant use, unspecified, uncomplicated
CPT/HCPCS: 99285; 96374; 96361; 80053; 81001; 83690; 84484; 85025; 36415; 87086; 87186; 74022; 93005; J2765; J7030; J2704

== ENCOUNTER 2023-06-04 09:49 | Emergency (ER) | payer OTHER ==
[~2023-06-04] VITALS: Ht 160 cm; Wt 65.9 kg
[2023-06-04 10:04] VITALS: TEMP 97.9
[2023-06-04] MEDS ORDERED: IBUPROFEN 400 MG TABLET PO ONE (11:45)
[2023-06-04] MEDS ORDERED: SULFAMETHOX/TRIMETH DS 800-160 MG/TABLET PO ONE (11:45)
[2023-06-04] MEDS ORDERED: IBUP-1506 PO (12:18)
[2023-06-04] MEDS ORDERED: SULF-261 PO (12:18)
[2023-06-04 12:45] VITALS: BP 120/65; PULSE 65; RESP 12
== END 2023-06-04 12:58 | disposition home or self-care (01) ==
LOC: EMS 09:49
DX: K13.0 Diseases of lips (principal); F41.9 Anxiety disorder, unspecified; M19.90 Unspecified osteoarthritis, unspecified site; J45.909 Unspecified asthma, uncomplicated; F31.9 Bipolar disorder, unspecified; J44.9 Chronic obstructive pulmonary disease, unspecified; E03.9 Hypothyroidism, unspecified; F20.9 Schizophrenia, unspecified; G89.29 Other chronic pain; M54.9 Dorsalgia, unspecified; F15.90 Other stimulant use, unspecified, uncomplicated; Z87.891 Personal history of nicotine dependence
CPT/HCPCS: 99283

== ENCOUNTER 2023-06-04 18:20 | Emergency (ER) | payer OTHER ==
[~2023-06-04] VITALS: Ht 157.5 cm; Wt 72.7 kg
[~2023-06-04 18:20] MED LIST changes: +IBUP-1506 PO; +SULF-261 PO
[2023-06-04 21:12] LABS: BASOPHILS % (AUTO) 0.1 % (0.0-2.0); EOSINOPHILS % (AUTO) 0 % (1.0-6.0); HEMATOCRIT 32.9 % (36-46); LYMPHOCYTES # (AUTO) 1.9 K/uL (1.0-4.8); MEAN CORPUSCULAR HEMOGLOBIN 27.2 pg (26.0-34.0); MEAN CORPUSCULAR HGB CONC 33.6 G/dL (31.0-37.0); MEAN CORPUSCULAR VOLUME 81 fL (80-100); MONOCYTES # (AUTO) 0.6 K/uL (0.1-1.0); MONOCYTES % (AUTO) 9.6 % (2.0-9.0); NEUTROPHILS # (AUTO) 4.1 K/uL (1.8-7.7); NEUTROPHILS % (AUTO) 62.3 % (40.0-70.0); PLATELET COUNT (AUTO) 317 K/uL (150-450); RED BLOOD CELL COUNT(AUTO) 4.05 MIL/uL (4.00-5.20); RED CELL DISTRIBUTION WIDTH 14.7 % (11.5-14.5); WHITE BLOOD COUNT (AUTO) 6.6 K/uL (4.5-11.0)
[2023-06-04 21:13] LABS: PH,URINE DRUG SCREEN 6.5 (5.0-8.0)
[2023-06-04 21:19] LABS: AMPHET/METH SCREEN,URINE NEGATIVE (NEGATIVE); BARBITURATE SCREEN, URINE NEGATIVE (NEGATIVE); BENZODIAZEPINES SCREEN,URINE NEGATIVE (NEGATIVE); CANNABINOID SCREEN,URINE NEGATIVE (NEGATIVE); COCAINE SCREEN,URINE NEGATIVE (NEGATIVE); METHADONE SCREEN, URINE NEGATIVE (NEGATIVE); OPIATE SCREEN,URINE NEGATIVE (NEGATIVE); PHENCYCLIDINE SCREEN,URINE NEGATIVE (NEGATIVE)
[2023-06-04 21:21] LABS: ANION GAP 11 mmol/L (8-16); CALCIUM, TOTAL 8.9 mg/dL (8.8-10.5); CARBON DIOXIDE 24 mmol/L (22-29); CHLORIDE 108 mmol/L (98-107); CREATININE 0.56 mg/dL (0.60-1.30); GLOMERULAR FILTR. RATE CALC > 60 mL/min (>60); GLUCOSE,RANDOM 102 mg/dL (70-110); POTASSIUM 3.3 mmol/L (3.5-5.1); SODIUM SERUM 143 mmol/L (136-145); UREA NITROGEN, BLOOD 17 mg/dL (7-18)
[2023-06-04 21:21] LABS: ALCOHOL, URINE DRUG SCREEN NEGATIVE (NEGATIVE)
[2023-06-04 21:27] LABS: ALANINE AMINOTRANSFERASE 12 U/L (12-78); ALBUMIN 3.3 g/dL (3.4-5.0); ALKALINE PHOSPHATASE 94 U/L (46-116); ASPARTATE AMINOTRANSFERASE 10 U/L (15-37); BILIRUBIN,TOTAL 0.1 mg/dL (0.1-1.0); TOTAL PROTEIN, SERUM 6.8 g/dL (6.4-8.2)
[2023-06-04 21:30] VITALS: BP 132/77; PULSE 89; RESP 18; TEMP 97.3
[2023-06-04] MEDS: POTASSIUM CHLORIDE 20 MEQ ER TABLET PO ONE (21:46)
== END 2023-06-04 22:00 | disposition home or self-care (01) ==
LOC: EMS 18:21
DX: R25.2 Cramp and spasm (principal); F41.9 Anxiety disorder, unspecified; M19.90 Unspecified osteoarthritis, unspecified site; J44.9 Chronic obstructive pulmonary disease, unspecified; F31.9 Bipolar disorder, unspecified; E03.9 Hypothyroidism, unspecified; F20.9 Schizophrenia, unspecified; G89.29 Other chronic pain; M54.9 Dorsalgia, unspecified; F15.90 Other stimulant use, unspecified, uncomplicated; Z87.891 Personal history of nicotine dependence
CPT/HCPCS: 80053; 80307; 85025; 93005; 99284

== ENCOUNTER 2023-08-05 06:20 | Emergency (ER) | payer OTHER ==
[~2023-08-05] VITALS: Ht 160 cm; Wt 70.0 kg
[2023-08-05 06:36] VITALS: TEMP 98.3
[2023-08-05] MEDS ORDERED: LORazepam 1 MG TABLET PO ONE (07:15)
[2023-08-05] MEDS ORDERED: KETOROLAC TROMETHAMINE 30 MG/ML VIAL IVP ONE (07:15)
[2023-08-05 07:40] LABS: APPEARANCE,URINE CLEAR (CLEAR); BILIRUBIN,URINE NEGATIVE (NEGATIVE); COLOR,URINE YELLOW (YELLOW); GLUCOSE, URINE (UA) NEGATIVE (NEGATIVE); KETONES,URINE NEGATIVE (NEGATIVE); LEUKOCYTE ESTERASE ,URINE SMALL (NEGATIVE); NITRATE,URINE NEGATIVE (NEGATIVE); OCCULT BLOOD,URINE TRACE (NEGATIVE); PH,URINE 5.5 (5.0-8.0); PH,URINE DRUG SCREEN 5.5 (5.0-8.0); PROTEIN,URINE TRACE mg/dL (NEGATIVE); SPECIFIC GRAVITIY, URINE 1.028 (1.003-1.030); UROBILINOGEN,URINE <=1.0 mg/dL (<=1.0)
[2023-08-05 07:47] LABS: BASOPHILS % (AUTO) 0.3 % (0.0-2.0); EOSINOPHILS % (AUTO) 0 % (1.0-6.0); HEMATOCRIT 38.2 % (36-46); HEMOGLOBIN 13.1 g/dL (12.0-16.0); LYMPHOCYTES # (AUTO) 2.2 K/uL (1.0-4.8); LYMPHOCYTES % (AUTO) 25.9 % (22.0-44.0); MEAN CORPUSCULAR HEMOGLOBIN 27.6 pg (26.0-34.0); MEAN CORPUSCULAR HGB CONC 34.2 G/dL (31.0-37.0); MEAN CORPUSCULAR VOLUME 81 fL (80-100); MONOCYTES # (AUTO) 0.6 K/uL (0.1-1.0); MONOCYTES % (AUTO) 6.9 % (2.0-9.0); NEUTROPHILS # (AUTO) 5.8 K/uL (1.8-7.7); NEUTROPHILS % (AUTO) 66.9 % (40.0-70.0); PLATELET COUNT (AUTO) 343 K/uL (150-450); RED BLOOD CELL COUNT(AUTO) 4.73 MIL/uL (4.00-5.20); RED CELL DISTRIBUTION WIDTH 15.4 % (11.5-14.5); WHITE BLOOD COUNT (AUTO) 8.7 K/uL (4.5-11.0)
[2023-08-05 07:48] LABS: RBC,URINE 0-2 /HPF (0-2)
[2023-08-05 07:49] LABS: BACTERIA,URINE Moderate /HPF (None Seen); SQUAMOUS EPITHELIAL CELL,UR Moderate /LPF (None Seen)
[2023-08-05 07:52] LABS: AMPHET/METH SCREEN,URINE NEGATIVE (NEGATIVE); BARBITURATE SCREEN, URINE NEGATIVE (NEGATIVE); BENZODIAZEPINES SCREEN,URINE NEGATIVE (NEGATIVE); CANNABINOID SCREEN,URINE NEGATIVE (NEGATIVE); COCAINE SCREEN,URINE NEGATIVE (NEGATIVE); METHADONE SCREEN, URINE NEGATIVE (NEGATIVE); OPIATE SCREEN,URINE NEGATIVE (NEGATIVE); PHENCYCLIDINE SCREEN,URINE NEGATIVE (NEGATIVE)
[2023-08-05 08:01] LABS: ALCOHOL, URINE DRUG SCREEN NEGATIVE (NEGATIVE)
[2023-08-05 08:03] LABS: TROPONIN I-HIGH SENSITIVITY 17 ng/L (<51)
[2023-08-05 08:07] LABS: B-TYPE NATRIURETIC PEPTIDE 6 pg/mL (0-100)
[2023-08-05 08:12] LABS: ALANINE AMINOTRANSFERASE 34 U/L (12-78); ALBUMIN 3.6 g/dL (3.4-5.0); ALKALINE PHOSPHATASE 106 U/L (46-116); ANION GAP 11 mmol/L (8-16); ASPARTATE AMINOTRANSFERASE 21 U/L (15-37); BILIRUBIN,TOTAL 0.3 mg/dL (0.1-1.0); CALCIUM, TOTAL 9.4 mg/dL (8.8-10.5); CARBON DIOXIDE 24 mmol/L (22-29); CHLORIDE 106 mmol/L (98-107); CREATININE 0.64 mg/dL (0.60-1.30); GLOMERULAR FILTR. RATE CALC > 60 mL/min (>60); GLUCOSE,RANDOM 100 mg/dL (70-110); POTASSIUM 3.9 mmol/L (3.5-5.1); PROTHROMBIN TIME 10.4 SEC (9.4-11.6); SODIUM SERUM 141 mmol/L (136-145); TOTAL PROTEIN, SERUM 7.6 g/dL (6.4-8.2); UREA NITROGEN, BLOOD 13 mg/dL (7-18)
[2023-08-05 08:48] VITALS: BP 136/75; PULSE 79; RESP 16
== END 2023-08-05 09:28 | disposition left against medical advice (07) ==
LOC: EMS 06:22
DX: R51.9 Headache, unspecified (principal); R55 Syncope and collapse; G47.00 Insomnia, unspecified; F41.9 Anxiety disorder, unspecified; J45.909 Unspecified asthma, uncomplicated; F31.9 Bipolar disorder, unspecified; J44.9 Chronic obstructive pulmonary disease, unspecified; F20.9 Schizophrenia, unspecified; G89.29 Other chronic pain; E03.9 Hypothyroidism, unspecified; F15.90 Other stimulant use, unspecified, uncomplicated; Z87.891 Personal history of nicotine dependence
CPT/HCPCS: 99285; 96374; 70450; 71045; 80053; 81001; 83880; 84484; 85025; 85610; 85730; 36415; 87086; 87186; 93005; 80307; J1885

== ENCOUNTER 2023-08-27 15:56 | Emergency (ER) | payer OTHER ==
[~2023-08-27] VITALS: Ht 152.4 cm; Wt 70.0 kg
[2023-08-27] MEDS ORDERED: LABETALOL HCL 5 MG/ML 20 ML VIAL IVP PRN ×2 (16:15)
[2023-08-27] MEDS ORDERED: LORazepam 2 MG/ML VIAL IVP ONE (16:15)
[2023-08-27 16:32] LABS: BASOPHILS % (AUTO) 0.5 % (0.0-2.0); EOSINOPHILS % (AUTO) 0.1 % (1.0-6.0); HEMATOCRIT 34.7 % (36-46); HEMOGLOBIN 11.9 g/dL (12.0-16.0); LYMPHOCYTES # (AUTO) 2.4 K/uL (1.0-4.8); LYMPHOCYTES % (AUTO) 32.2 % (22.0-44.0); MEAN CORPUSCULAR HGB CONC 34.4 G/dL (31.0-37.0); MEAN CORPUSCULAR VOLUME 81 fL (80-100); MONOCYTES # (AUTO) 0.5 K/uL (0.1-1.0); MONOCYTES % (AUTO) 6.7 % (2.0-9.0); NEUTROPHILS # (AUTO) 4.6 K/uL (1.8-7.7); NEUTROPHILS % (AUTO) 60.5 % (40.0-70.0); PLATELET COUNT (AUTO) 319 K/uL (150-450); RED BLOOD CELL COUNT(AUTO) 4.27 MIL/uL (4.00-5.20); RED CELL DISTRIBUTION WIDTH 15.1 % (11.5-14.5); WHITE BLOOD COUNT (AUTO) 7.6 K/uL (4.5-11.0)
[2023-08-27] MEDS ORDERED: IOHEXOL 350 MG/ML 100 ML VIAL ONE (16:40)
[2023-08-27] MEDS ORDERED: SODIUM CHLORIDE 0.9% 100 ML ONE (16:40)
[2023-08-27 16:41] LABS: ANION GAP 6 mmol/L (8-16); CALCIUM, TOTAL 8.7 mg/dL (8.8-10.5); CARBON DIOXIDE 27 mmol/L (22-29); CHLORIDE 108 mmol/L (98-107); CREATININE 0.51 mg/dL (0.60-1.30); GLOMERULAR FILTR. RATE CALC > 60 mL/min (>60); GLUCOSE,RANDOM 106 mg/dL (70-110); POTASSIUM 3.5 mmol/L (3.5-5.1); SODIUM SERUM 141 mmol/L (136-145); UREA NITROGEN, BLOOD 11 mg/dL (7-18)
[2023-08-27 16:44] VITALS: TEMP 97.8
[2023-08-27 16:46] LABS: ALANINE AMINOTRANSFERASE 27 U/L (12-78); ALBUMIN 3.3 g/dL (3.4-5.0); ALKALINE PHOSPHATASE 89 U/L (46-116); ASPARTATE AMINOTRANSFERASE 18 U/L (15-37); BILIRUBIN,TOTAL 0.1 mg/dL (0.1-1.0); TOTAL PROTEIN, SERUM 6.9 g/dL (6.4-8.2)
[2023-08-27 16:50] LABS: TROPONIN I-HIGH SENSITIVITY 14 ng/L (<51)
[2023-08-27 16:53] LABS: INR 0.9 (0.9-1.1); PROTHROMBIN TIME 9.8 SEC (9.4-11.6)
[2023-08-27 16:56] LABS: GLUCOMETER DEV NAME(LOC) ER.6; GLUCOSE,POINT OF CARE 104 MG/DL (70-110)
[2023-08-27 17:55] VITALS: BP 156/73; PULSE 58; RESP 18
[2023-08-27 18:10] LABS: APPEARANCE,URINE CLEAR (CLEAR); BILIRUBIN,URINE NEGATIVE (NEGATIVE); COLOR,URINE LIGHT YELLOW (YELLOW); GLUCOSE, URINE (UA) NEGATIVE (NEGATIVE); KETONES,URINE NEGATIVE (NEGATIVE); LEUKOCYTE ESTERASE ,URINE NEGATIVE (NEGATIVE); NITRATE,URINE NEGATIVE (NEGATIVE); OCCULT BLOOD,URINE NEGATIVE (NEGATIVE); PROTEIN,URINE 30-70 mg/dL (NEGATIVE); UROBILINOGEN,URINE <=1.0 mg/dL (<=1.0)
[2023-08-27 19:31] LABS: BACTERIA,URINE None Seen /HPF (None Seen); RBC,URINE 0-2 /HPF (0-2); SQUAMOUS EPITHELIAL CELL,UR Few /LPF (None Seen); WBC,URINE 0-2 /HPF (0-5)
[2023-08-27 19:39] LABS: COVID AG,FIA SOURCE NASAL SWAB
[2023-08-27 20:01] LABS: SARS-COV2 (COVID) ANTIGEN,FIA Negative (Negative)
[2023-08-27 20:59] LABS: ALCOHOL, URINE DRUG SCREEN NEGATIVE (NEGATIVE); AMPHET/METH SCREEN,URINE POSITIVE (NEGATIVE); BARBITURATE SCREEN, URINE NEGATIVE (NEGATIVE); BENZODIAZEPINES SCREEN,URINE NEGATIVE (NEGATIVE); CANNABINOID SCREEN,URINE NEGATIVE (NEGATIVE); COCAINE SCREEN,URINE NEGATIVE (NEGATIVE); METHADONE SCREEN, URINE NEGATIVE (NEGATIVE); OPIATE SCREEN,URINE NEGATIVE (NEGATIVE); PHENCYCLIDINE SCREEN,URINE NEGATIVE (NEGATIVE)
== END 2023-08-27 20:30 | disposition left against medical advice (07) ==
LOC: EMS 15:57
DX: F15.10 Other stimulant abuse, uncomplicated (principal); F41.9 Anxiety disorder, unspecified; R29.810 Facial weakness; M19.90 Unspecified osteoarthritis, unspecified site; J44.9 Chronic obstructive pulmonary disease, unspecified; F31.9 Bipolar disorder, unspecified; E03.9 Hypothyroidism, unspecified; F20.9 Schizophrenia, unspecified; G89.29 Other chronic pain; M54.9 Dorsalgia, unspecified; Z87.891 Personal history of nicotine dependence
CPT/HCPCS: 99285; 70496; 96374; 71045; 87426; 80053; 81001; 82962; 84484; 85025; 85610; 85730; 86850; 86900; 86901; 36415; 70498; 82948; 93005; 51702; 80307; 70450; J2060; Q9967; J7050

== ENCOUNTER 2023-08-28 13:42 | Emergency (ER) | payer OTHER ==
[~2023-08-28] VITALS: Ht 160 cm; Wt 65.9 kg
[2023-08-28 13:46] VITALS: TEMP 98.2
[2023-08-28] MEDS ORDERED: LORazepam 2 MG/ML VIAL IM ONE (14:45)
[2023-08-28 15:04] LABS: BASOPHILS % (AUTO) 0.5 % (0.0-2.0); EOSINOPHILS % (AUTO) 0.1 % (1.0-6.0); HEMATOCRIT 34.2 % (36-46); HEMOGLOBIN 11.9 g/dL (12.0-16.0); LYMPHOCYTES # (AUTO) 2.4 K/uL (1.0-4.8); LYMPHOCYTES % (AUTO) 35.9 % (22.0-44.0); MEAN CORPUSCULAR HEMOGLOBIN 28.2 pg (26.0-34.0); MEAN CORPUSCULAR HGB CONC 34.8 G/dL (31.0-37.0); MEAN CORPUSCULAR VOLUME 81 fL (80-100); MONOCYTES # (AUTO) 0.5 K/uL (0.1-1.0); MONOCYTES % (AUTO) 7.8 % (2.0-9.0); NEUTROPHILS # (AUTO) 3.8 K/uL (1.8-7.7); NEUTROPHILS % (AUTO) 55.7 % (40.0-70.0); PLATELET COUNT (AUTO) 325 K/uL (150-450); RED BLOOD CELL COUNT(AUTO) 4.22 MIL/uL (4.00-5.20); WHITE BLOOD COUNT (AUTO) 6.8 K/uL (4.5-11.0)
[2023-08-28 15:22] LABS: ALCOHOL, BLOOD (SERUM) < 3 mg/dL (0-10)
[2023-08-28 15:23] LABS: ANION GAP 11 mmol/L (8-16); CALCIUM, TOTAL 8.4 mg/dL (8.8-10.5); CARBON DIOXIDE 23 mmol/L (22-29); CHLORIDE 105 mmol/L (98-107); CREATININE 0.61 mg/dL (0.60-1.30); GLOMERULAR FILTR. RATE CALC > 60 mL/min (>60); GLUCOSE,RANDOM 119 mg/dL (70-110); POTASSIUM 3.1 mmol/L (3.5-5.1); SODIUM SERUM 139 mmol/L (136-145); UREA NITROGEN, BLOOD 10 mg/dL (7-18)
[2023-08-28 15:28] LABS: TROPONIN I-HIGH SENSITIVITY 14 ng/L (<51)
[2023-08-28 15:29] LABS: ALANINE AMINOTRANSFERASE 32 U/L (12-78); ALBUMIN 3.4 g/dL (3.4-5.0); ALKALINE PHOSPHATASE 86 U/L (46-116); ASPARTATE AMINOTRANSFERASE 23 U/L (15-37); BILIRUBIN,TOTAL 0.3 mg/dL (0.1-1.0); TOTAL PROTEIN, SERUM 6.9 g/dL (6.4-8.2)
[2023-08-28] MEDS ORDERED: POTASSIUM CHLORIDE 10% 40 MEQ/30 ML LIQUID UDCUP PO ONE (15:45)
[2023-08-28 16:21] VITALS: BP 146/66; PULSE 69; RESP 18
== END 2023-08-28 17:03 | disposition home or self-care (01) ==
LOC: EMS 13:43
DX: F41.9 Anxiety disorder, unspecified (principal); F15.10 Other stimulant abuse, uncomplicated; E87.6 Hypokalemia; F31.9 Bipolar disorder, unspecified; M19.90 Unspecified osteoarthritis, unspecified site; J44.9 Chronic obstructive pulmonary disease, unspecified; E03.9 Hypothyroidism, unspecified; F20.9 Schizophrenia, unspecified; G89.29 Other chronic pain; M54.9 Dorsalgia, unspecified; Z87.891 Personal history of nicotine dependence
CPT/HCPCS: 99284; 80053; 84484; 85025; 36415; 93005; 96372; G0480; J2060

== ENCOUNTER 2023-09-06 14:45 | Emergency (ER) | payer OTHER ==
[~2023-09-06] VITALS: Ht 160 cm; Wt 65.9 kg
[2023-09-06 14:51] VITALS: TEMP 98.2
[2023-09-06] MEDS ORDERED: ATOR20TA65 PO (15:12)
[2023-09-06] MEDS ORDERED: LORA-1000 PO (15:12)
[2023-09-06] MEDS ORDERED: LEMB10TA PO (15:12)
[2023-09-06] MEDS ORDERED: LORazepam 1 MG TABLET PO ONE ×2 (15:15→16:30)
[2023-09-06 15:46] LABS: BASOPHILS % (AUTO) 0.6 % (0.0-2.0); EOSINOPHILS % (AUTO) 0.1 % (1.0-6.0); HEMATOCRIT 36.8 % (36-46); HEMOGLOBIN 12.7 g/dL (12.0-16.0); LYMPHOCYTES # (AUTO) 2.9 K/uL (1.0-4.8); LYMPHOCYTES % (AUTO) 31.8 % (22.0-44.0); MEAN CORPUSCULAR HEMOGLOBIN 28.1 pg (26.0-34.0); MEAN CORPUSCULAR HGB CONC 34.4 G/dL (31.0-37.0); MEAN CORPUSCULAR VOLUME 82 fL (80-100); MONOCYTES # (AUTO) 0.8 K/uL (0.1-1.0); MONOCYTES % (AUTO) 9.1 % (2.0-9.0); NEUTROPHILS # (AUTO) 5.3 K/uL (1.8-7.7); NEUTROPHILS % (AUTO) 58.4 % (40.0-70.0); PLATELET COUNT (AUTO) 336 K/uL (150-450); RED CELL DISTRIBUTION WIDTH 14.8 % (11.5-14.5); WHITE BLOOD COUNT (AUTO) 9.1 K/uL (4.5-11.0)
[2023-09-06 16:00] LABS: TROPONIN I-HIGH SENSITIVITY 15 ng/L (<51)
[2023-09-06 16:14] LABS: ANION GAP 9 mmol/L (8-16); CARBON DIOXIDE 23 mmol/L (22-29); CHLORIDE 108 mmol/L (98-107); CREATININE 0.73 mg/dL (0.60-1.30); GLOMERULAR FILTR. RATE CALC > 60 mL/min (>60); GLUCOSE,RANDOM 111 mg/dL (70-110); POTASSIUM 3.7 mmol/L (3.5-5.1); SODIUM SERUM 140 mmol/L (136-145); UREA NITROGEN, BLOOD 23 mg/dL (7-18)
[2023-09-06 16:20] LABS: ALANINE AMINOTRANSFERASE 20 U/L (12-78); ALBUMIN 3.7 g/dL (3.4-5.0); ALKALINE PHOSPHATASE 91 U/L (46-116); ASPARTATE AMINOTRANSFERASE 15 U/L (15-37); BILIRUBIN,TOTAL 0.3 mg/dL (0.1-1.0); CREATINE KINASE, TOTAL ONLY 31 U/L (26-192); TOTAL PROTEIN, SERUM 7.2 g/dL (6.4-8.2)
[2023-09-06 17:19] VITALS: BP 122/56; PULSE 74; RESP 18
== END 2023-09-06 18:01 | disposition home or self-care (01) ==
LOC: EMS 14:49
DX: F41.9 Anxiety disorder, unspecified (principal); M19.90 Unspecified osteoarthritis, unspecified site; J44.9 Chronic obstructive pulmonary disease, unspecified; F31.9 Bipolar disorder, unspecified; E03.9 Hypothyroidism, unspecified; F20.9 Schizophrenia, unspecified; G89.29 Other chronic pain; M54.9 Dorsalgia, unspecified; F12.90 Cannabis use, unspecified, uncomplicated; F15.90 Other stimulant use, unspecified, uncomplicated; Z87.891 Personal history of nicotine dependence
CPT/HCPCS: 80053; 82550; 84484; 84702; 84703; 85025; 93005; 99284

== ENCOUNTER 2023-11-06 07:21 | Emergency (ER) | payer OTHER ==
[~2023-11-06] VITALS: Ht 160 cm; Wt 71.4 kg
[~2023-11-06 07:21] MED LIST changes: +ATOR20TA65 PO; +LEMB10TA PO; +LORA-1000 PO; -LURA120T PO; -SULF-261 PO
[2023-11-06] MEDS ORDERED: GABA-1216 PO (07:39)
[2023-11-06 07:47] VITALS: TEMP 98.8
[2023-11-06] MEDS ORDERED: LURA60TA PO (08:37)
[2023-11-06] MEDS ORDERED: OLAN10TA74 PO (08:37)
[2023-11-06] MEDS ORDERED: GABA-1181 PO (08:37)
[2023-11-06] MEDS ORDERED: LORA-1000 PO (08:37)
[2023-11-06 09:35] VITALS: BP 102/55; PULSE 81; RESP 16
== END 2023-11-06 09:51 | disposition home or self-care (01) ==
LOC: EMS 07:45
DX: F41.9 Anxiety disorder, unspecified (principal); M19.90 Unspecified osteoarthritis, unspecified site; F31.9 Bipolar disorder, unspecified; J44.9 Chronic obstructive pulmonary disease, unspecified; E03.9 Hypothyroidism, unspecified; F20.9 Schizophrenia, unspecified; G89.29 Other chronic pain; M54.9 Dorsalgia, unspecified; F12.90 Cannabis use, unspecified, uncomplicated; F15.90 Other stimulant use, unspecified, uncomplicated; Z87.891 Personal history of nicotine dependence; Z76.0 Encounter for issue of repeat prescription
CPT/HCPCS: 99281; Z7502

== ENCOUNTER 2024-01-10 01:33 | Emergency (ER) | payer OTHER ==
[~2024-01-10] VITALS: Ht 160 cm; Wt 75.0 kg
[2024-01-10 01:56] VITALS: BP 111/76; PULSE 57; RESP 16; TEMP 97.7
[2024-01-10 02:42] LABS: ANION GAP 16 mmol/L (8-16); CALCIUM, TOTAL 8.8 mg/dL (8.8-10.5); CARBON DIOXIDE 22 mmol/L (22-29); CHLORIDE 102 mmol/L (98-107); CREATININE 0.94 mg/dL (0.60-1.30); GLOMERULAR FILTR. RATE CALC > 60 mL/min (>60); GLUCOSE,RANDOM 99 mg/dL (70-110); POTASSIUM 3.6 mmol/L (3.5-5.1); SODIUM SERUM 140 mmol/L (136-145); UREA NITROGEN, BLOOD 24 mg/dL (7-18)
[2024-01-10 02:47] LABS: BASOPHILS % (AUTO) 0.4 % (0.0-2.0); EOSINOPHILS % (AUTO) 0.1 % (1.0-6.0); HEMATOCRIT 38.4 % (36-46); LYMPHOCYTES # (AUTO) 4.2 K/uL (1.0-4.8); LYMPHOCYTES % (AUTO) 32.8 % (22.0-44.0); MEAN CORPUSCULAR HEMOGLOBIN 29.1 pg (26.0-34.0); MEAN CORPUSCULAR HGB CONC 33.9 G/dL (31.0-37.0); MEAN CORPUSCULAR VOLUME 86 fL (80-100); MONOCYTES # (AUTO) 0.7 K/uL (0.1-1.0); MONOCYTES % (AUTO) 5.5 % (2.0-9.0); NEUTROPHILS # (AUTO) 7.9 K/uL (1.8-7.7); NEUTROPHILS % (AUTO) 61.2 % (40.0-70.0); PLATELET COUNT (AUTO) 395 K/uL (150-450); RED BLOOD CELL COUNT(AUTO) 4.47 MIL/uL (4.00-5.20); RED CELL DISTRIBUTION WIDTH 14.8 % (11.5-14.5); WHITE BLOOD COUNT (AUTO) 12.9 K/uL (4.5-11.0)
[2024-01-10 02:48] LABS: ALANINE AMINOTRANSFERASE 24 U/L (12-78); ALKALINE PHOSPHATASE 81 U/L (46-116); ASPARTATE AMINOTRANSFERASE 22 U/L (15-37); BILIRUBIN,TOTAL 0.3 mg/dL (0.1-1.0)
[2024-01-10 02:50] LABS: TROPONIN I-HIGH SENSITIVITY 14 ng/L (<51)
[2024-01-10 02:53] LABS: PH,URINE DRUG SCREEN 5.5 (5.0-8.0)
[2024-01-10 02:56] LABS: ALCOHOL, BLOOD (SERUM) < 3 mg/dL (0-10)
[2024-01-10 02:57] LABS: ALCOHOL, URINE DRUG SCREEN NEGATIVE (NEGATIVE); AMPHET/METH SCREEN,URINE NEGATIVE (NEGATIVE); BARBITURATE SCREEN, URINE NEGATIVE (NEGATIVE); BENZODIAZEPINES SCREEN,URINE NEGATIVE (NEGATIVE); CANNABINOID SCREEN,URINE NEGATIVE (NEGATIVE); COCAINE SCREEN,URINE NEGATIVE (NEGATIVE); METHADONE SCREEN, URINE NEGATIVE (NEGATIVE); OPIATE SCREEN,URINE NEGATIVE (NEGATIVE); PHENCYCLIDINE SCREEN,URINE NEGATIVE (NEGATIVE)
[2024-01-10] MEDS: LORazepam 2 MG TABLET PO ONE (03:59)
[2024-01-10] MEDS: DiphenhydrAMINE HCL 25 MG CAPSULE PO ONE (04:15)
== END 2024-01-10 03:42 | disposition home or self-care (01) ==
LOC: EMS 01:34
DX: G47.00 Insomnia, unspecified (principal); R55 Syncope and collapse; F41.9 Anxiety disorder, unspecified; M19.90 Unspecified osteoarthritis, unspecified site; F31.9 Bipolar disorder, unspecified; J44.9 Chronic obstructive pulmonary disease, unspecified; E03.9 Hypothyroidism, unspecified; F20.9 Schizophrenia, unspecified; G89.29 Other chronic pain; M54.9 Dorsalgia, unspecified; F12.90 Cannabis use, unspecified, uncomplicated; F15.90 Other stimulant use, unspecified, uncomplicated; F17.210 Nicotine dependence, cigarettes, uncomplicated
CPT/HCPCS: 80053; 84484; 85025; 36415; 99284; 93005; 80307; G0480

== ENCOUNTER → 2024-01-10 | Emergency (ER) | payer OTHER ==
[~2024-01-10] VITALS: Ht 160 cm; Wt 75.0 kg
[~2024-01-10] MED LIST changes: +GABA-1181 PO; +GABA-1216 PO; +LURA60TA PO; +OLAN10TA74 PO
[2024-01-10 18:05] LABS: BASOPHILS % (AUTO) 0.8 % (0.0-2.0); EOSINOPHILS % (AUTO) 0.1 % (1.0-6.0); HEMATOCRIT 36.7 % (36-46); HEMOGLOBIN 12.3 g/dL (12.0-16.0); LYMPHOCYTES # (AUTO) 4.3 K/uL (1.0-4.8); LYMPHOCYTES % (AUTO) 34.2 % (22.0-44.0); MEAN CORPUSCULAR HGB CONC 33.6 G/dL (31.0-37.0); MEAN CORPUSCULAR VOLUME 86 fL (80-100); MONOCYTES # (AUTO) 0.7 K/uL (0.1-1.0); MONOCYTES % (AUTO) 5.7 % (2.0-9.0); NEUTROPHILS # (AUTO) 7.5 K/uL (1.8-7.7); NEUTROPHILS % (AUTO) 59.2 % (40.0-70.0); PLATELET COUNT (AUTO) 351 K/uL (150-450); RED BLOOD CELL COUNT(AUTO) 4.25 MIL/uL (4.00-5.20); RED CELL DISTRIBUTION WIDTH 15.2 % (11.5-14.5); WHITE BLOOD COUNT (AUTO) 12.7 K/uL (4.5-11.0)
[2024-01-10 18:12] LABS: ANION GAP 11 mmol/L (8-16); CALCIUM, TOTAL 8.8 mg/dL (8.8-10.5); CARBON DIOXIDE 23 mmol/L (22-29); CHLORIDE 103 mmol/L (98-107); GLOMERULAR FILTR. RATE CALC > 60 mL/min (>60); GLUCOSE,RANDOM 89 mg/dL (70-110); POTASSIUM 3.9 mmol/L (3.5-5.1); SODIUM SERUM 137 mmol/L (136-145); UREA NITROGEN, BLOOD 24 mg/dL (7-18)
[2024-01-10 18:17] LABS: APPEARANCE,URINE CLEAR (CLEAR); BILIRUBIN,URINE NEGATIVE (NEGATIVE); COLOR,URINE YELLOW (YELLOW); GLUCOSE, URINE (UA) NEGATIVE (NEGATIVE); KETONES,URINE NEGATIVE (NEGATIVE); LEUKOCYTE ESTERASE ,URINE TRACE (NEGATIVE); NITRATE,URINE NEGATIVE (NEGATIVE); OCCULT BLOOD,URINE NEGATIVE (NEGATIVE); PH,URINE 5.5 (5.0-8.0); PH,URINE DRUG SCREEN 5.5 (5.0-8.0); PROTEIN,URINE NEGATIVE (NEGATIVE); SPECIFIC GRAVITIY, URINE 1.033 (1.003-1.030); UROBILINOGEN,URINE <=1.0 mg/dL (<=1.0)
[2024-01-10 18:18] LABS: ALANINE AMINOTRANSFERASE 14 U/L (12-78); ALBUMIN 3.7 g/dL (3.4-5.0); ALKALINE PHOSPHATASE 66 U/L (46-116); ASPARTATE AMINOTRANSFERASE 18 U/L (15-37); BILIRUBIN,TOTAL 0.3 mg/dL (0.1-1.0); TOTAL PROTEIN, SERUM 7.4 g/dL (6.4-8.2)
[2024-01-10 18:25] LABS: ALCOHOL, URINE DRUG SCREEN NEGATIVE (NEGATIVE); AMPHET/METH SCREEN,URINE NEGATIVE (NEGATIVE); BARBITURATE SCREEN, URINE NEGATIVE (NEGATIVE); BENZODIAZEPINES SCREEN,URINE NEGATIVE (NEGATIVE); CANNABINOID SCREEN,URINE NEGATIVE (NEGATIVE); COCAINE SCREEN,URINE NEGATIVE (NEGATIVE); METHADONE SCREEN, URINE NEGATIVE (NEGATIVE); OPIATE SCREEN,URINE NEGATIVE (NEGATIVE); PHENCYCLIDINE SCREEN,URINE NEGATIVE (NEGATIVE)
[2024-01-10 18:37] LABS: TROPONIN I-HIGH SENSITIVITY 9 ng/L (<51)
[2024-01-10 18:44] LABS: PROTHROMBIN TIME 10.3 SEC (9.4-11.6)
[2024-01-10 18:50] LABS: BACTERIA,URINE Rare /HPF (None Seen); RBC,URINE 0-2 /HPF (0-2); SQUAMOUS EPITHELIAL CELL,UR Few /LPF (None Seen)
[2024-01-10 20:05] LABS: COVID AG,FIA SOURCE NASAL SWAB
[2024-01-10] MEDS: LORazepam 1 MG TABLET PO ONE (20:17)
[2024-01-10 20:22] LABS: SARS-COV2 (COVID) ANTIGEN,FIA Negative (Negative)
[2024-01-10 21:30] VITALS: BP 116/70; PULSE 65; RESP 18; TEMP 97.9
== END | disposition still patient (30) ==
LOC: EMS 16:32
DX: R55 Syncope and collapse (principal); G47.00 Insomnia, unspecified; F41.9 Anxiety disorder, unspecified; M19.90 Unspecified osteoarthritis, unspecified site; J44.9 Chronic obstructive pulmonary disease, unspecified; F31.9 Bipolar disorder, unspecified; E03.9 Hypothyroidism, unspecified; F20.9 Schizophrenia, unspecified; G89.29 Other chronic pain; M54.9 Dorsalgia, unspecified; F12.90 Cannabis use, unspecified, uncomplicated; F15.90 Other stimulant use, unspecified, uncomplicated; F17.210 Nicotine dependence, cigarettes, uncomplicated; Z20.822 Contact with and (suspected) exposure to COVID-19
CPT/HCPCS: 99285; 71045; 87426; 80053; 81001; 83880; 84484; 85025; 85610; 85730; 36415; 93005; 80307; G0480; 99284

== ENCOUNTER 2024-02-27 20:33 | Emergency (ER) | payer OTHER ==
[~2024-02-27] VITALS: Ht 162.6 cm; Wt 81.8 kg
[2024-02-27 20:51] VITALS: BP 106/84; PULSE 70; RESP 18; TEMP 98
[2024-02-27 23:09] LABS: ANION GAP 6 mmol/L (8-16); CALCIUM, TOTAL 9.6 mg/dL (8.8-10.5); CARBON DIOXIDE 27 mmol/L (22-29); CHLORIDE 107 mmol/L (98-107); GLOMERULAR FILTR. RATE CALC > 60 mL/min (>60); GLUCOSE,RANDOM 104 mg/dL (70-110); POTASSIUM 3.4 mmol/L (3.5-5.1); SODIUM SERUM 140 mmol/L (136-145); UREA NITROGEN, BLOOD 17 mg/dL (7-18)
[2024-02-27 23:33] LABS: BASOPHILS % (AUTO) 0.3 % (0.0-2.0); EOSINOPHILS % (AUTO) 0.6 % (1.0-6.0); HEMOGLOBIN 12.4 g/dL (12.0-16.0); LYMPHOCYTES # (AUTO) 3.2 K/uL (1.0-4.8); LYMPHOCYTES % (AUTO) 40.4 % (22.0-44.0); MEAN CORPUSCULAR HEMOGLOBIN 29.7 pg (26.0-34.0); MEAN CORPUSCULAR HGB CONC 34.5 G/dL (31.0-37.0); MEAN CORPUSCULAR VOLUME 86 fL (80-100); MONOCYTES # (AUTO) 0.7 K/uL (0.1-1.0); MONOCYTES % (AUTO) 9.3 % (2.0-9.0); NEUTROPHILS # (AUTO) 3.9 K/uL (1.8-7.7); NEUTROPHILS % (AUTO) 49.4 % (40.0-70.0); PLATELET COUNT (AUTO) 310 K/uL (150-450); RED BLOOD CELL COUNT(AUTO) 4.18 MIL/uL (4.00-5.20); RED CELL DISTRIBUTION WIDTH 14.5 % (11.5-14.5)
== END 2024-02-28 00:40 | disposition home or self-care (01) ==
LOC: EMS 20:33
DX: R25.2 Cramp and spasm (principal); J44.9 Chronic obstructive pulmonary disease, unspecified; F17.210 Nicotine dependence, cigarettes, uncomplicated; F12.90 Cannabis use, unspecified, uncomplicated; F15.10 Other stimulant abuse, uncomplicated
CPT/HCPCS: 80048; 84703; 85025; 99283

== ENCOUNTER 2025-05-23 13:07 | Emergency (ER) | payer OTHER ==
[~2025-05-23] VITALS: Ht 157.5 cm; Wt 76.4 kg
[~2025-05-23 13:07] MED LIST changes: +BUSP10TA23 PO; +DIAZ5TAB PO; +DIVA-153 PO; -GABA-1181 PO; -GABA-1216 PO; -IBUP-1506 PO; -LEMB10TA PO; -LORA-1000 PO; -LURA60TA4 PO; -MELA3TAB89 PO; -OLAN7.5T22 PO
[2025-05-23 13:12] VITALS: TEMP 98.3
[2025-05-23 14:05] LABS: PLATELET COUNT (AUTO) 120 K/uL (150-450); RED BLOOD CELL COUNT(AUTO) 4.03 MIL/uL (4.00-5.20); RED CELL DISTRIBUTION WIDTH 15.0 % (11.5-14.5); WHITE BLOOD COUNT (AUTO) 4.4 K/uL (4.5-11.0)
[2025-05-23 14:11] LABS: CALCIUM, TOTAL 8.0 mg/dL (8.8-10.5); CREATININE 0.96 mg/dL (0.60-1.30); GLOMERULAR FILTR. RATE CALC 60.0 mL/min (>60); GLUCOSE,RANDOM 79.0 mg/dL (70-110); SODIUM SERUM 141.0 mmol/L (136-145); UREA NITROGEN, BLOOD 12.0 mg/dL (7-18)
[2025-05-23 15:14] LABS: COVID AG,FIA SOURCE NASAL SWAB
[2025-05-23 15:25] LABS: APPEARANCE,URINE CLEAR (CLEAR); GLUCOSE, URINE (UA) NEGATIVE (NEGATIVE); LEUKOCYTE ESTERASE ,URINE NEGATIVE (NEGATIVE); NITRATE,URINE NEGATIVE (NEGATIVE); OCCULT BLOOD,URINE NEGATIVE (NEGATIVE); PH,URINE DRUG SCREEN 6.0 (5.0-8.0); SPECIFIC GRAVITIY, URINE 1.035 (1.003-1.030)
[2025-05-23 15:36] LABS: SARS-COV2 (COVID) ANTIGEN,FIA Negative (Negative)
[2025-05-23 16:14] LABS: ALCOHOL, URINE DRUG SCREEN NEGATIVE (NEGATIVE); AMPHET/METH SCREEN,URINE NEGATIVE (NEGATIVE); BARBITURATE SCREEN, URINE NEGATIVE (NEGATIVE); CANNABINOID SCREEN,URINE NEGATIVE (NEGATIVE); COCAINE SCREEN,URINE NEGATIVE (NEGATIVE); METHADONE SCREEN, URINE NEGATIVE (NEGATIVE)
[2025-05-23 19:44] VITALS: BP 110/70; PULSE 75; RESP 16; O2SAT 99
== END 2025-05-23 21:36 | disposition home or self-care (01) ==
LOC: EMS 13:07
DX: F41.9 Anxiety disorder, unspecified (principal); G89.29 Other chronic pain; M54.9 Dorsalgia, unspecified; F31.9 Bipolar disorder, unspecified; E03.9 Hypothyroidism, unspecified; Z87.891 Personal history of nicotine dependence; Z79.899 Other long term (current) drug therapy; Z20.822 Contact with and (suspected) exposure to COVID-19
CPT/HCPCS: 99284; 87426; 80048; 81003; 85025; 36415; 80307; G0480